=== PATIENT | male | born 1980 | race Two or more races ===

== ENCOUNTER → 2020-08-02 09:03 | Outpatient (BNVA) | payer OTHER, SELFPAY | PROVIDERS: Visit Provider Urology | DX: N41.9 Inflammatory disease of prostate, unspecified (principal) | CPT/HCPCS: 81002 ==

== ENCOUNTER 2020-08-25 07:52 | Emergency (ER) | payer OTHER, SELFPAY ==
[2020-08-25 08:04] VITALS: BP 140/57; PULSE 64; RESP 16; TEMP 36.9; O2SAT 98; BMI 35.1
[2020-08-25] MEDS: Tetracaine HCl/PF 0.5% Oph Sol 4 ML DROPS 3 DROP EYE-RIGHT (08:58)
--- NOTE | 2020-08-25 09:02 | ED.EYEPROB ---
HPI - Eye Problem General Chief complaint: Eye Problems Stated complaint: ?metal in eye Time Seen by Provider: 08/25/20 08:18 Source: patient Mode of arrival: ambulatory History of Present Illness HPI Narrative: 39-year-old male who presents to the emergency department for evaluation of a metal foreign body to the right eye. The patient states that he was grinding metal 2 days prior to did feel something strike his eye underneath the safety glasses. He states that the piece of metal is still in place, he denies any pain or change in his vision but he decided to come to the emergency department since he was concerned that the metal had not fallen out by itself. The patient denies being ill in any way, denied fever, chills, cough, chest pain, shortness of breath, loss of sense of taste or smell. Related Data Previous Rx's Medication Instructions Recorded prednisone 20 mg tablet 20 mg PO DAILY 5 Days #5 tab 08/02/20 sulfamethoxazole 800 1 tab PO BID 14 Days #28 tab 08/02/20 mg-trimethoprim 160 mg tablet tamsulosin 0.4 mg capsule 0.4 mg PO BEDTIME #30 cap 08/02/20 sulfacetamide sodium [Bleph-10] 2 drp OPHTHALMIC-RIGHT Q4H 7 Days 08/25/20 #15 ml Allergies Allergy/AdvReac Type Severity Reaction Status Date / Time No Known Allergies Allergy Unverified 05/17/20 18:27 Review of Systems Review of Systems: Yes all other systems are reviewed and are negative Constitutional: Constitutional: Reports as per HPI Eyes: Eyes: Reports as per HPI ENT: Reports as per HPI Cardiovascular: Cardiovascular: Reports as per HPI Respiratory: Respiratory: Reports as per HPI Gastrointestinal: Gastrointestinal: Reports as per HPI Genitourinary: Genitourinary: Reports as per HPI Musculoskeletal: Musculoskeletal: Reports as per HPI Integumentary/Breasts: Skin/Breast: Reports as per HPI Neurologic: Reports as per HPI and Reports Abnormal speech present Psychiatric: Psychiatric: Reports as per HPI Allergic/Immunologic: Allergic/Immunologic: Reports as per HPI PMF Past Medical History Attestation statement: The following information was validated with the patient. FORMERLY [facility], 1928–1983 Narrative: No past medical history, denies tobacco alcohol and drug use. Medical History No known health problems Social History Social History Advance Directives: No Advance Directives Information Provided: Yes Physical Exam Vital Signs: Vital Signs: Last Vital Signs Temp 98.4 F 08/25/20 08:04 Pulse 64 08/25/20 08:04 Resp 16 08/25/20 08:04 BP 140/57 H 08/25/20 08:04 Pulse Ox 98 08/25/20 08:04 Body Mass Index 35.1 Const: General: cooperative and healthy appearing Nutritional Appearance: average body habitus Orientation/consciousness: oriented to person and oriented to place Limitations: no limitations HENMT: Head: Yes normal to inspection, Yes normocephalic and Yes atraumatic Ears: external ears normal General nose exam: Normal external nose present Face and sinus: Yes normal facial exam Mouth: Normal oral and palatal mucosa present Throat: Yes posterior oropharynx normal Eyes: General: appearance normal, both eyes and all related structures Alignment and Position: alignment normal Periorbital: periorbital findings normal Eyelids: Yes eyelids normal Conjunctivae: conjunctivae normal Sclerae: sclerae normal Pupils: Equal, round and reactive pupils present and Other pupil findings (Foreign body to right eye at the 7 o'clock position) Direct Ophthalmoscopy: normal light reflex Chest: Chest palpation & inspection: normal inspection of the chest Resp: Effort & Inspection: normal respiratory effort Cardio: Heart sounds: Murmur heart sound present GI: Inspection: Yes normal to inspection Neuro: General: oriented to person and oriented to place Cranial nerves: Yes Equal, round and reactive pupils present Cognition (Neuro): normal cognition Speech: Abnormal speech present Psych: Appearance: grossly normal and well kempt Affect: normal affect Attitude: cooperative Thought process: Normal thought process present Course Course Course Narrative: 29-year-old male who presents emergency department for evaluation of metal foreign body to his right cornea secondary to grinding metal 2 days prior. Slit-lamp exam did reveal a rusted metal foreign body at the 7 o'clock position, this was reviewed by me using the 18 gauge needle and the slit lamp. The patient will need follow-up with Optometry or Ophthalmology in 2 days. He was started on Bleph-10 to prevent an infection. He was also given a Tdap since he did not know when his last Tdap was given. Procedures FB Removal Eye Time Out performed: Yes Location: eye (R) Topical anesthetic used: tetracaine Foreign body: metal Evidence of corneal penetration: No Technique: needle Procedure performed under: slit-lamp Patient tolerated procedure: well Discharge Plan Discharge Clinical Impression: Eye foreign body Qualifiers: Encounter type: initial encounter Laterality: right Qualified Code(s): T15.91XA - Foreign body on external eye, part unspecified, right eye, initial encounter Patient Disposition: Home, Self-Care Instructions: Eye Foreign Body (ED) Additional Instructions: You had a metal foreign body in your eye which was removed by me. You received a Tdap ( tetanus, diphtheria, pertussis) vaccine . You need to follow-up with and marine extension agent or supervisor hand silvering in 2 days to make sure that your eye is healing and not getting infected. Use the eyedrops as prescribed, Bleph 10 2 drops to right eye every 4 hours while awake for 7 days. Please return to the emergency department if your symptoms get worse or if you develop any new symptoms that are concerning to you. Prescriptions: New sulfacetamide sodium [Bleph-10] 10 % drops 2 drp ophthalmic-Right Q4H 7 Days Qty: 15 RF: 0 No Action prednisone 20 mg tablet 20 mg PO DAILY 5 Days Qty: 5 RF: 0 tamsulosin 0.4 mg capsule 0.4 mg PO BEDTIME Qty: 30 RF: 0 sulfamethoxazole-trimethoprim [Bactrim DS] 800-160 mg tablet 1 tab PO BID 14 Days Qty: 28 RF: 0 Referrals: Jeffrey Murphy [Physician] - 2 days (Metal foreign body right eye, removed, needs follow-up)
== END 2020-08-25 09:19 | disposition home or self-care (01) ==
PROVIDERS: Emergency Provider Emergency Medicine Emergency Medical Services
DX: T15.91XA Foreign body on external eye, part unspecified, right eye, initial encounter (principal); X58.XXXA Exposure to other specified factors, initial encounter
CPT/HCPCS: 65222; 90471; 90715; 99283; 99284

== ENCOUNTER → 2020-09-13 14:42 | Outpatient (BNVA) | payer OTHER, SELFPAY | PROVIDERS: Visit Provider Urology | DX: N41.9 Inflammatory disease of prostate, unspecified (principal) | CPT/HCPCS: 51798; 81002 ==

== ENCOUNTER → 2021-01-02 13:33 | Outpatient (BNVA) | payer OTHER, SELFPAY | PROVIDERS: Visit Provider Urology ==

== ENCOUNTER → 2021-01-17 09:00 | Outpatient (BNVA) | payer OTHER, SELFPAY | PROVIDERS: Visit Provider Urology | DX: R31.0 Gross hematuria (principal); Z13.9 Encounter for screening, unspecified ==

== ENCOUNTER 2021-02-04 10:33 | Day surgery (SDC) | payer OTHER, SELFPAY ==
[2021-01-30 11:54] VITALS: BMI 35.0
--- NOTE | 2021-02-01 13:04 | HO.ANESPROP2 ---
Documented by User: Tigist Raygoza 02/01/21 13:08 HPI - Anesthesia Eval Consult details Narrative: 40yo M for TUR Bladder Tumor PMFSH Active Problems Active Problems: All Active Problems (Updated 01/17/21 @ 09:31 by Suraj Mccarthy MD) Bladder cancer (Acute) Gross hematuria (Acute) Prostatitis (Acute) Past Medical History Medical History Bladder cancer Social History Social History Patient Tobacco Use Status: Former Tobacco user Quit Date: 2007 Tobacco use type: Cigarette Use of substances other than those prescribed or required for medical reasons: Yes Substance Use Frequency: Daily Are you DNR?: No Advance Directives: No Advance Directives Information Provided: Yes Meds Allergies Allergy/AdvReac Type Severity Reaction Status Date / Time No Known Allergies Allergy Verified 01/17/21 08:12 Exam Exam Date and Time: February 01, 2021 1304 Height,Weight and Vital Signs: Height 5 ft 3 in Weight 89.811 kg Assessment and Plan Assessment Anesthesia Assessment: Chart Reviewed Documented by User: Conchita Clark 02/04/21 14:55 PMFSH Past Medical History Medical History Bladder cancer Social History Social History Patient Tobacco Use Status: Former Tobacco user Quit Date: 2007 Tobacco use type: Cigarette Use of substances other than those prescribed or required for medical reasons: Yes Substance Use Frequency: Daily Are you DNR?: No Advance Directives: No Advance Directives Information Provided: Yes Meds Allergies Allergy/AdvReac Type Severity Reaction Status Date / Time No Known Allergies Allergy Verified 01/17/21 08:12 Exam Airway Mallampati Class: II TM Dist: >3cm Neck ROM: Full Loose/Missing/Broken Teeth: No Heart: RRR Lungs: CTA Assessment and Plan Assessment Anesthesia Assessment: Anesthesia Plan Discussed and Chart Reviewed Final Anesthetic Review NPO: Yes ASA Class: II Final Preanesthetic Review: Meds/Allgs Chart Reviewed, Consent Obtained/Reviewed and Anes Risks/Benef Reviewed Patient Risk: Low Procedure Risk: Low Anesthetic Plan Anesthetic Plan: GA Disposition: Standard PACU
[2021-02-04 13:50] VITALS: BMI 34.3
[2021-02-04 14:06] VITALS: BP 147/64; PULSE 52; RESP 16; TEMP 36.4; O2SAT 98
[2021-02-04] MEDS: levoFLOXacin 500 MG TABLET PO (14:16)
[2021-02-04] MEDS: Lactated Ringers 1,000 ML 100 ML IVCONT (14:16)
--- NOTE | 2021-02-04 15:39 | MHC.SHP ---
Pre-Procedural Eval Section A The patient is an INPATIENT: No Changes since office visit: No Cold of Flu in the past 2 weeks, No New Medical Problems, No Changes in Medication and No Patient answered all questions The History & Physical has been completed within 30 days and I have reviewed it.: Yes Section B Chief Complaint: malignant neoplasm of bladder Allergies: Allergies Allergy/AdvReac Type Severity Reaction Status Date / Time No Known Allergies Allergy Verified 01/17/21 08:12 Plan Diagnosis/Plan: Unchanged (TURBT - bladder tumor low grade) I have reviewed the history and physical and performed a pertinent physical examination on my patient. No changes have occurred unless specified.
--- NOTE | 2021-02-04 16:18 | W.PM.OPN ---
Operative Note Operative Note Date of Service: 02/04/21 Narrative: PreOperative Diagnosis: bladder cancer Post Operative Diagnosis: bladder cancer Procedure: transurethral resection of bladder tumor Surgeon: Dr Suraj Mccarthy Anesthesia: general Indications for procedure: this is a 40-year-old male. He had presented initially for prostatitis. Noted hematuria. On cystoscopy was found to have a low-grade bladder cancer on the left lower side wall of his bladder. Recommendation for TURBT. Risks and Benefits have been discussed. Procedure: After informed consent was verified the patient was brought to the operating room and placed in a supine position. anesthesia was administered per protocol. the patient was placed in a modified dorsal lithotomy position and prepped and draped in sterile fashion. Safety pause time-out was performed. Antibiotics have been given. The resectoscope using the visual obturator was advanced into the bladder. no abnormality noted of the urethra. Both ureteric orifices in normal position. The tumor was seen approximately 4-5 cm in size from the left sidewall. Using the resectoscope the tumor was removed. There was a now the lesion noted on the 12 o'clock position of the bladder neck. This too was also removed. The area 1 cm around the lesion was fulgurated. No catheter was required The bladder was emptied The patient tolerated the procedure well was extubated in the operating room and transferred in a stable condition to the recovery area Pathology: Bladder tumor Drains: none
[2021-02-04 16:30] VITALS: BP 110/65; PULSE 65; RESP 12; TEMP 36.3; O2SAT 99
[2021-02-04 16:35] VITALS: BP 126/77; PULSE 68; RESP 16; O2SAT 100
[2021-02-04 16:45] VITALS: BP 150/89; PULSE 64; RESP 17; TEMP 36.2; O2SAT 98
[2021-02-04 17:00] VITALS: BP 129/62; PULSE 68; RESP 16; O2SAT 98
[2021-02-04] MEDS: Phenazopyridine HCL 100 MG TABLET PO (17:00)
[2021-02-04 17:15] VITALS: BP 124/64; PULSE 66; RESP 17; O2SAT 99
== END 2021-02-04 17:24 ==
LOC: HO.SSS 10:33
PROVIDERS: Visit Provider Urology
PROC: 0TBB8ZZ Excision of Bladder, Via Natural or Artificial Opening Endoscopic (ICD-10-PCS; CPT 52235; principal; 2021-02-04 11:50)
DX: C67.9 Malignant neoplasm of bladder, unspecified (principal); Z79.899 Other long term (current) drug therapy; Z87.891 Personal history of nicotine dependence
CPT/HCPCS: 52235; 88307; J2250; J2405; J3010

== ENCOUNTER → 2021-02-13 10:52 | Outpatient (BNVA) | payer SELFPAY | PROVIDERS: Visit Provider Physician Assistant | DX: Z02.79 Encounter for issue of other medical certificate (principal); C67.9 Malignant neoplasm of bladder, unspecified; Z87.891 Personal history of nicotine dependence ==

== ENCOUNTER 2021-05-15 14:50 | Outpatient (REF) | payer OTHER, SELFPAY ==
[2021-05-15 17:11] LABS: Urine Cytology See Pathology rpt
== END 2021-05-15 14:51 | disposition home or self-care (01) ==
LOC: HO.LAB 14:50
PROVIDERS: Visit Provider Urology
DX: Z85.51 Personal history of malignant neoplasm of bladder (principal)
CPT/HCPCS: 52000; 88112

== ENCOUNTER 2021-09-13 09:45 | Outpatient (REF) | payer SELFPAY ==
[2021-09-13 16:39] LABS: Urine Cytology See Pathology rpt
== END 2021-09-13 09:46 | disposition home or self-care (01) ==
LOC: HO.LNP 09:45
PROVIDERS: Visit Provider Urology
DX: C67.9 Malignant neoplasm of bladder, unspecified (principal); N41.9 Inflammatory disease of prostate, unspecified; Z79.899 Other long term (current) drug therapy; Z87.891 Personal history of nicotine dependence
CPT/HCPCS: 52000; 88112

== ENCOUNTER 2022-01-10 09:06 | Outpatient (REF) | payer SELFPAY ==
[2022-01-10 16:57] LABS: Urine Cytology See Pathology rpt
== END 2022-01-10 09:07 | disposition home or self-care (01) ==
LOC: HO.LAB 09:06
PROVIDERS: Visit Provider Urology
DX: C67.9 Malignant neoplasm of bladder, unspecified (principal)
CPT/HCPCS: 52000; 88112; 99212

== ENCOUNTER 2022-02-25 18:58 | Emergency (ER) | payer SELFPAY ==
--- NOTE | 2022-02-25 | ECG_ITS ---
Test Reason : CP Blood Pressure : / mmHG Vent. Rate : 049 BPM Atrial Rate : 049 BPM P-R Int : 174 ms QRS Dur : 084 ms QT Int : 424 ms P-R-T Axes : 051 005 -01 degrees QTc Int : 383 ms Sinus bradycardia Minimal voltage criteria for LVH, may be normal variant ( R in aVL ) cannot exclude old Inferior infarct , age undetermined Abnormal ECG No previous ECGs available Referred By: Dmitri Álvarez Electronically Signed By:VIDHI NOVA
[2022-02-25 20:35] VITALS: BP 124/81; PULSE 51; RESP 15; TEMP 36.2; O2SAT 98; BMI 30.7
[2022-02-25 21:07] LABS: MANUAL DIFF FLAG NO
[2022-02-25 21:10] LABS: Basophils Absolute Auto 0.1 X10*3/uL (0.0-0.2); Basophils Percent Auto 0.8 % (0-2); Eosinophils Absolute Auto 0.5 X10*3/uL (0.0-0.4); Eosinophils Percent Auto 4.6 % (0-4); Hematocrit 40.9 % (42.0-52.0); Hemoglobin 13.8 g/dl (14.0-18.0); Imm Gran Abs Auto 0.05 X10*3/uL (0.00-0.03); Imm Gran Pct Auto 0.5 % (0.0-0.4); Lymphocytes Absolute Auto 2.7 X10*3/uL (1.2-4.9); Mean Corpuscular HGB Conc 33.7 g/dl (31.0-36.0); Mean Corpuscular Hemoglobin 29.3 pg (27.0-33.0); Mean Corpuscular Volume 86.8 fL (80.0-98.0); Monocytes Absolute Auto 0.7 X10*3/uL (0.1-1.2); Monocytes Percent Auto 6.9 % (2-11); Neutrophils Absolute Auto 6.1 x10*3/uL (2.0-8.3); Neutrophils Percent Auto 60.2 % (45-73); Platelet Count 268 X10*3/uL (160-400); Red Blood Count 4.71 X10*6/uL (4.60-5.80); Red Cell Distribution Width 12.4 % (11.0-16.0); White Blood Count 10.2 X10*3/uL (4.8-10.8)
[2022-02-25 21:17] VITALS: BP 136/79; PULSE 49; RESP 18; TEMP 36.9; O2SAT 98
--- NOTE | 2022-02-25 21:25 | ED.CHESTPAIN ---
HPI - Chest Pain General Chief Complaint: Chest Pain Stated Complaint: pressure in head/ tight chest Time Seen by Provider: 02/25/22 21:25 Source: patient Mode of arrival: ambulatory Limitations: no limitations History of Present Illness HPI narrative: patient had chest pain yesterday and headache yesterday. patient today again with chest pain. Patient had chest pain at rest pain was substernal with some shortness of breath. Patient with prior chest pain with no prior workup. Patient with recent surgery for bladder cancer, patient had 6 weeks of chemo directly into the bladder. Chemo finished 6 months ago. complaint: chest heaviness Onset (ago): day(s) Timing of current episode: episodic Prior episodes: Yes Onset: during rest Pain location: substernal Severity: mild Quality: tightness Relieving factors: nothing Associated symptoms: dyspnea Risk Factors Coronary artery disease risk factors: none Pulmonary embolism risk factors: recent surgery and malignancy Related Data Home Medications Medication Instructions Recorded Confirmed phenazopyridine 100 mg tablet 100 mg PO TID PRN muscle spasm 05/15/21 hydroxyzine HCl 25 mg tablet 25 mg PO DAILY 09/13/21 Allergies Allergy/AdvReac Type Severity Reaction Status Date / Time No Known Allergies Allergy Verified 01/10/22 09:08 Review of Systems Constitutional: Constitutional: Reports no additional constitutional complaints Eyes: Eyes: Reports no additional eye complaints ENT: Denies dizziness Cardiovascular: Cardiovascular: Reports no additional cardiovascular complaints Respiratory: Respiratory: Reports as per HPI Gastrointestinal: Gastrointestinal: Reports no additional gastrointestinal complaints Musculoskeletal: Musculoskeletal: Reports no additional musculoskeletal complaints Integumentary/Breasts: Skin/Breast: Denies rash Neurologic: Reports system reviewed and no additional complaints, except as documented, Denies dizziness and Denies Sensory deficit (Neuro) Psychiatric: Psychiatric: Denies anxiety [facility] Past Medical History Medical History (Updated 02/27/22 @ 00:03 by Seema Parsons) Bladder cancer Social History Social History Alcohol intake: current Alcohol intake frequency: a few times a week Patient Tobacco Use Status: Former Tobacco user Quit Date: 2007 Tobacco use type: Cigarette Use of substances other than those prescribed or required for medical reasons: Yes Substance Use Type: Marijuana Substance Use Frequency: Daily Any prior treatment program specific to substance use: No Advance Directives: No Advance Directives Information Provided: No Physical Exam Vital Signs: Vital Signs: Last Vital Signs Temp 98.2 F 02/26/22 00:29 Pulse 59 02/26/22 00:29 Resp 16 02/26/22 00:29 BP 112/68 02/26/22 00:29 Pulse Ox 99 02/26/22 00:29 O2 Del Method 02/26/22 00:29 BMI result Body Mass Index 30.7 Const: General: healthy appearing Nutritional Appearance: average body habitus Orientation/consciousness: oriented to person and patient oriented x3 Limitations: no limitations HEENT: Head: Yes normal to inspection Ears: external ears normal General nose exam: Normal external nose present Mouth: Normal oral and palatal mucosa present and oropharynx normal Throat: Yes posterior oropharynx normal Eyes: General: appearance normal, both eyes and all related structures Neck: Other: supple Neck: Yes normal visual inspection Chest: Chest palpation & inspection: normal inspection of the chest Resp: Auscultation: clear to auscultation bilaterally Cardio: Jugular venous distension: no JVD Rate: regular rate Rhythm: regular rhythm Heart sounds: S1 normal heart sound present and S2 normal heart sound present GI: Inspection: Yes normal to inspection Palpation (GI): Soft to palpation, nontender and No hepatosplenomegaly present Auscultation: normal bowel sounds : General: Yes no CVA tenderness Back/Spine/Pelvis: Back: no CVA tenderness Skin: General skin exam: no rashes or lesions noted Neuro: General: oriented to person and patient oriented x3 Cranial nerves: Yes CN's II-XII intact bilaterally Motor exam (neuro): 5/5 motor strength present throughout Sensory Exam: No Sensory deficit (Neuro) Extrem: General: Yes normal to inspection Psych: Appearance: grossly normal Course Reevaluation(s) Reevaluation #1: Work up was negative, patient reassured that this was not cardiac in nature Time: 08:40 MDM - Chest Pain Lab Data Result diagrams: 02/25/22 21:01 02/25/22 22:03 Labs: Lab Results 02/25/22 02/25/22 02/25/22 Range/Units 21:01 21:02 21:02 WBC 10.2 (4.8-10.8) X10*3/uL RBC 4.71 (4.60-5.80) X10*6/uL Hgb 13.8 L (14.0-18.0) g/dl Hct 40.9 L (42.0-52.0) % MCV 86.8 (80.0-98.0) fL MCH 29.3 (27.0-33.0) pg MCHC 33.7 (31.0-36.0) g/dl RDW 12.4 (11.0-16.0) % Plt Count 268 (160-400) X10*3/uL MPV 11.0 (9.4-12.4) fL Immature Gran % (Auto) 0.5 H (0.0-0.4) % Neut % (Auto) 60.2 (45-73) % Lymph % (Auto) 27.0 (20-40) % Weld % (Auto) 6.9 (2-11) % Eos % (Auto) 4.6 H (0-4) % Baso % (Auto) 0.8 (0-2) % Lymph # (Auto) 2.7 (1.2-4.9) X10*3/uL Weld # (Auto) 0.7 (0.1-1.2) X10*3/uL Eos # (Auto) 0.5 H (0.0-0.4) X10*3/uL Baso # (Auto) 0.1 (0.0-0.2) X10*3/uL Abs Immat Gran (auto) 0.05 H (0.00-0.03) X10*3/uL Absolute Neuts (auto) 6.1 (2.0-8.3) x10*3/uL Absolute Nucleated RBC 0.000 (0.0-0.012) X10*3/uL Nucleated RBC % (auto) 0.0 (0.0-0.2) /100WBC D-Dimer High Sensitivty NG/ML Sodium 139 (135-145) mmol/L Potassium 4.4 (3.3-5.1) mmol/L Chloride 107 (96-108) mmol/L Carbon Dioxide 27 (22-29) mmol/L Anion Gap 9 L (12-20) BUN 14 (9-16) mg/dL Creatinine 0.94 (0.5-1.4) mg/dL Estim Creat Clear Calc 107.4 Estimated GFR > 60 Random Glucose 97 (60-115) mg/dL Calcium 9.3 (8.4-10.2) mg/dL Total Bilirubin 0.5 (0.0-1.0) mg/dL AST 27 (5-37) U/L ALT 26 (0-40) U/L Alkaline Phosphatase 84 (39-117) U/L Troponin I High Sens 4.5 (<3.5-35.0) ng/L Total Protein 7.5 (6.5-8.0) g/dL Albumin 4.7 (3.5-5.0) g/dL 02/25/22 02/25/22 02/26/22 Range/Units 22:03 22:03 00:38 WBC (4.8-10.8) X10*3/uL RBC (4.60-5.80) X10*6/uL Hgb (14.0-18.0) g/dl Hct (42.0-52.0) % MCV (80.0-98.0) fL MCH (27.0-33.0) pg MCHC (31.0-36.0) g/dl RDW (11.0-16.0) % Plt Count (160-400) X10*3/uL MPV (9.4-12.4) fL Immature Gran % (Auto) (0.0-0.4) % Neut % (Auto) (45-73) % Lymph % (Auto) (20-40) % Weld % (Auto) (2-11) % Eos % (Auto) (0-4) % Baso % (Auto) (0-2) % Lymph # (Auto) (1.2-4.9) X10*3/uL Weld # (Auto) (0.1-1.2) X10*3/uL Eos # (Auto) (0.0-0.4) X10*3/uL Baso # (Auto) (0.0-0.2) X10*3/uL Abs Immat Gran (auto) (0.00-0.03) X10*3/uL Absolute Neuts (auto) (2.0-8.3) x10*3/uL Absolute Nucleated RBC (0.0-0.012) X10*3/uL Nucleated RBC % (auto) (0.0-0.2) /100WBC D-Dimer High Sensitivty < 150 NG/ML Sodium 139 (135-145) mmol/L Potassium 4.4 (3.3-5.1) mmol/L Chloride 107 (96-108) mmol/L Carbon Dioxide 24 (22-29) mmol/L Anion Gap 12 (12-20) BUN 14 (9-16) mg/dL Creatinine 0.83 (0.5-1.4) mg/dL Estim Creat Clear Calc 121.7 Estimated GFR > 60 Random Glucose 93 (60-115) mg/dL Calcium 9.2 (8.4-10.2) mg/dL Total Bilirubin (0.0-1.0) mg/dL AST (5-37) U/L ALT (0-40) U/L Alkaline Phosphatase (39-117) U/L Troponin I High Sens 4.8 (<3.5-35.0) ng/L Total Protein (6.5-8.0) g/dL Albumin (3.5-5.0) g/dL Discharge Plan Discharge Clinical Impression: Chest pain Patient Disposition: Home, Self-Care Prescriptions: No Action phenazopyridine 100 mg tablet 100 mg PO TID PRN (Reason: muscle spasm) hydroxyzine HCl 25 mg tablet 25 mg PO DAILY nitrofurantoin monohyd/m-cryst 100 mg capsule 100 mg PO ONCE Qty: 1 0RF lidocaine HCl 2 % jelly in applicator 10 ml intra-urethral ONCE Qty: 10 0RF Discharge Date/Time: 02/26/22 02:26
[2022-02-25 21:35] LABS: Alanine Aminotransferase 26 U/L (0-40); Albumin Level 4.7 g/dL (3.5-5.0); Alkaline Phosphatase 84 U/L (39-117); Anion Gap 9 (12-20); Aspartate Amino Transferase 27 U/L (5-37); Bilirubin Total 0.5 mg/dL (0.0-1.0); Blood Urea Nitrogen 14 mg/dL (9-16); Calcium 9.3 mg/dL (8.4-10.2); Carbon Dioxide 27 mmol/L (22-29); Chloride 107 mmol/L (96-108); Creatinine Clr Calc Pharmacy 107.4; Estimated Glomerular Filt Rate > 60; Glucose Random 97 mg/dL (60-115); Potassium 4.4 mmol/L (3.3-5.1); Sodium 139 mmol/L (135-145); Total Protein 7.5 g/dL (6.5-8.0)
[2022-02-25 21:37] LABS: Troponin-I High Sensitivity 4.5 ng/L (<3.5-35.0)
[2022-02-25] MEDS: Aspirin Enteric Coated 325 MG TABLET.DR PO (21:44)
[2022-02-25] MEDS: Nitroglycerin 2 % Oint 1 GM Packet 1 INCH TRANSDERMA (21:44)
[2022-02-25 22:27] VITALS: BP 141/80; PULSE 58; RESP 16; O2SAT 96
[2022-02-25 22:43] LABS: D Dimer High Sensitivity < 150 NG/ML
[2022-02-25 22:47] LABS: Anion Gap 12 (12-20); Blood Urea Nitrogen 14 mg/dL (9-16); Calcium 9.2 mg/dL (8.4-10.2); Carbon Dioxide 24 mmol/L (22-29); Chloride 107 mmol/L (96-108); Creatinine Clr Calc Pharmacy 121.7; Estimated Glomerular Filt Rate > 60; Glucose Random 93 mg/dL (60-115); Potassium 4.4 mmol/L (3.3-5.1); Sodium 139 mmol/L (135-145)
[2022-02-26 00:29] VITALS: BP 112/68; PULSE 59; RESP 16; TEMP 36.8; O2SAT 99
[2022-02-26 01:04] LABS: Troponin-I High Sensitivity 4.8 ng/L (<3.5-35.0)
== END 2022-02-26 02:26 | disposition home or self-care (01) ==
PROVIDERS: Emergency Provider Emergency Medicine; PCP Physician Assistant
DX: R07.89 Other chest pain (principal); R51.9 Headache, unspecified; R06.02 Shortness of breath; Z79.899 Other long term (current) drug therapy; Z87.891 Personal history of nicotine dependence
CPT/HCPCS: 36415; 80048; 80053; 84484; 85025; 85379; 93005; 99283; 99284

== ENCOUNTER 2022-07-11 09:03 | Outpatient (REF) | payer OTHER, SELFPAY ==
[2022-07-11 17:11] LABS: Urine Cytology See Pathology rpt
== END 2022-07-11 09:04 | disposition home or self-care (01) ==
LOC: HO.LAB 09:03
PROVIDERS: Visit Provider Urology
DX: C67.9 Malignant neoplasm of bladder, unspecified (principal)
CPT/HCPCS: 52000; 88112

== ENCOUNTER 2022-07-28 11:09 | Day surgery (SDC) | payer OTHER, SELFPAY ==
[2022-07-28] VITALS (9 sets, daily range): BP systolic 106–155; BP diastolic 56–90; PULSE 55–88; RESP 16–18; TEMP 36.1–36.6; O2SAT 95–98
[2022-07-28] MEDS: Acetaminophen 325 MG TABLET 650 MG PO (14:19)
--- NOTE | 2022-07-28 14:42 | MHC.SHP ---
Pre-Procedural Eval Section A Date of Service: 07/28/22 The patient is an INPATIENT: No Changes since office visit: No Cold of Flu in the past 2 weeks, No New Medical Problems, No Changes in Medication and No Patient answered all questions The History & Physical has been completed within 30 days and I have reviewed it.: Yes Section B Chief Complaint: Malignant neoplasm of bladder, unspecified Allergies: Allergies Allergy/AdvReac Type Severity Reaction Status Date / Time No Known Allergies Allergy Verified 07/28/22 13:21 Plan Diagnosis/Plan: Unchanged (Cysto, bladder biopsy, mitomycin-C) I have reviewed the history and physical and performed a pertinent physical examination on my patient. No changes have occurred unless specified.
--- NOTE | 2022-07-28 14:52 | HO.ANESPROP2 ---
[facility] Active Problems Active Problems: All Active Problems (Updated 02/27/22 @ 00:03 by Seema Parsons) Prostatitis (Acute) Gross hematuria (Acute) Bladder cancer (Acute) Past Medical History Medical History Bladder cancer Family History Family history of problems with anesthesia: No Surgical History Surgical History (Updated 07/28/22 @ 13:29 by Lennie Bolton RN) Hx of cystoscopy History of Problems with Anesthesia: No Social History Social History Alcohol intake: current Alcohol intake frequency: a few times a week Patient Tobacco Use Status: Former Tobacco user Quit Date: 2007 Tobacco use type: Cigarette Substance Use Type: Marijuana Substance Use Frequency: Daily Are you DNR?: No Advance Directives: No Advance Directives Information Provided: Yes Nutrition Risks: No Nutritional Risk Meds Allergies Allergy/AdvReac Type Severity Reaction Status Date / Time No Known Allergies Allergy Verified 07/28/22 13:21 Active Medications: Current Medications Fentanyl (Fentanyl Citrate/Pf 100 Mcg/2 Ml Vial) 25 mcg IVPUSH Q5M PRN; Protocol PRN Reason: Pain, Moderate (Pain Scale 4-6 Mitomycin 40 mg/ Sodium (Chloride) 20 mls @ 10 mls/hr INTRAVESIC ONCE BRITTANY Stop: 07/28/22 23:59 Lactated Ringer's (Lr) 500 mls @ 20 mls/hr IVCONT .Q24H BRITTANY Ondansetron HCl (Ondansetron Hcl 4 Mg/2 Ml Vial) 4 mg IVPUSH ONCE PRN PRN Reason: Nausea and Vomiting Oxycodone HCl (Oxycodone Hcl Immed Release 5 Mg Tablet) 5 mg PO ONCE PRN PRN Reason: Pain, Severe (Pain Scale 7-10) Home Medications Medication Instructions Recorded Confirmed Last Taken Type No Known Home Meds 07/28/22 07/28/22 Unknown History Exam Exam Date and Time: July 28, 2022 1452 Height,Weight and Vital Signs: Height 5 ft 6 in Weight 86.183 kg Last Vital Signs Temp 97.9 F 07/28/22 13:43 Pulse 67 07/28/22 13:43 Resp 18 07/28/22 13:43 BP 106/80 07/28/22 13:43 Pulse Ox 97 07/28/22 13:43 O2 Del Method 07/28/22 13:43 Airway Mallampati Class: III TM Dist: >3cm Neck ROM: Full Denture: Upper and Lower Heart: rrr Lungs: clear Assessment and Plan Final Anesthetic Review Family History of Problems with Anesthesia: No History of Problems with Anesthesia: No NPO: Yes ASA Class: III Final Preanesthetic Review: No Changes in Pt Med Stat, Meds/Allgs Chart Reviewed, Consent Obtained/Reviewed and Anes Risks/Benef Reviewed Patient Risk: Intermediate Procedure Risk: Low Anesthetic Plan Anesthetic Plan: GA Disposition: Standard PACU
--- NOTE | 2022-07-28 15:31 | W.PM.OPN ---
Operative Note Operative Note Date of Service: 07/28/22 Narrative: PreOperative Diagnosis: bladder cancer Post Operative Diagnosis: bladder cancer Procedure: cystoscopy, bladder biopsy, fulguration, mitomycin-C installation Surgeon: Dr Suraj Mccarthy Anesthesia: LMA Indications for procedure: Superficial bladder cancer - recurrence. Here for cystoscopy, bladder biopsy. Evaluation. Procedure: After informed consent was verified the patient was brought to the operating room and placed in a supine position. Anesthesia was administered per protocol. The patient was placed in modified dorsal lithotomy position and prepped and draped in a sterile fashion. Safety pause time-out was performed. Antibiotics being given. Cystoscopy was performed. 1 cm bladder tumor on small stalks seen on anterior bladder wall. This was removed with biopsy forceps. Area was fulgurated. Narrow band imaging was used but no other areas of suspicion was seen. Cystoscope was removed. Three-way Lozano catheter placed. Mitomycin-C instilled. This will set for approximately 1 hour before being drained from bladder and bladder irrigation performed. Lozano catheter be removed this time. The patient tolerated the procedure well. They were extubated in operating room and transferred in stable conditions recovery area. Pathology: Bladder biopsies Drains: Lozano
== END 2022-07-28 17:12 | disposition home or self-care (01) ==
PROVIDERS: PCP Physician Assistant; Visit Provider Urology
PROC: 0T5B8ZZ Destruction of Bladder, Via Natural or Artificial Opening Endoscopic (ICD-10-PCS; CPT 52234; principal; 2022-07-28 13:00)
DX: C67.3 Malignant neoplasm of anterior wall of bladder (principal); Z87.891 Personal history of nicotine dependence
CPT/HCPCS: 52234; 88307; J1100; J1956; J2250; J2405; J3010; J9280

== ENCOUNTER 2022-11-14 13:56 | Outpatient (REF) | payer OTHER, SELFPAY ==
[2022-11-14 17:40] LABS: Urine Cytology See Pathology rpt
== END 2022-11-14 13:57 | disposition home or self-care (01) ==
LOC: HO.LAB 13:56
PROVIDERS: PCP Physician Assistant; Visit Provider Urology
DX: C67.9 Malignant neoplasm of bladder, unspecified (principal)
CPT/HCPCS: 52000; 88112

== ENCOUNTER → 2023-02-13 13:55 | Outpatient (BNVA) | payer OTHER, SELFPAY | PROVIDERS: PCP Physician Assistant; Visit Provider Urology | DX: R31.9 Hematuria, unspecified (principal); N41.9 Inflammatory disease of prostate, unspecified; C67.9 Malignant neoplasm of bladder, unspecified | CPT/HCPCS: 52000 ==

== ENCOUNTER 2023-05-15 13:46 | Outpatient (AMB) | payer OTHER, SELFPAY ==
--- NOTE | 2023-05-15 14:09 | MHC.OFFVIS ---
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 Information consent for procedure given to the patient. Discussed technical aspects, risks, benefits and alternatives in full. Addressed all of the patient's questions and concerns regarding the procedure. The patient demonstrated knowledge and understanding. They wish to proceed with this procedure. Preparation The patient was prepped in the usual manner. A necktie centralizing machine operator was present and in the room. Genitalia was prepped with betadine solution in a sterile manner. Lidocaine Jelly 2% was placed into the urethra and 16Fr flexible Olympus cystoscope was inserted into the meatus after adequate lubrication. Procedure Meatus uncircumcised Urethra anterior posterior urethra normal Prostatic Urethra unremarkable Bladder examination with retroflexion of cystoscope Bladder Orifices normal shape and position Bladder Capacity medium Trabeculations grade 1 Cellule Formation known Diverticulum Formation - Mucosal Erythema healing area posterior wall Bladder Tumor - DISPOSABLE SCOPE URO-G FLEXIBLE SCOPE Procedure code (CPT) selection complete Office Meds lidocaine HCl 2 % mucosal jelly in applicator Performing Provider: Suraj Mccarthy MD Performing Location[facility] [place] [facility] Documented (not given) by: Suraj Mccarthy MD on 05/15/23 14:31 Dose Route Admin Location Dispensed Lot Number Expiration Date [facility] Draw Off Worker 10 mL intra-urethral mL Results AMB Urinalysis, Automated UA Leukoctes 0 Little/uL Last Edit by Layla Simpson on 05/15/23 14:13 UA Nitrite Last Edit by Layla Simpson on 05/15/23 14:13 UA Urobilinogen 0.2 mg/dL Last Edit by Giovannikuldip Lashawnjose e on 05/15/23 14:13 UA Protein 0 mg/dL Last Edit by Layla Lashawnjose e on 05/15/23 14:13 UA pH 6.0 Last Edit by Layla Lashawnjose e on 05/15/23 14:13 UA Blood 0 Pranav/uL Last Edit by Layla Simpson on 05/15/23 14:13 UA Specific [place] 1.025 Last Edit by Layla Lashawnjose e on 05/15/23 14:13 UA Ketone Negative Last Edit by Layla Simpson on 05/15/23 14:13 UA Bilirubin 0 mg/dL Last Edit by Layla Lashawnjose e on 05/15/23 14:13 UA Glucose 0 mg/dL Last Edit by Layla Simpson on 05/15/23 14:13 Results Reviewed Results Reviewed: Laboratory Last Values Urine pH (Auto) 6.0 05/15/23 14:11 Specific [place] (Auto) 1.025 05/15/23 14:11 Urine Protein (Auto) 0 mg/dL 05/15/23 14:11 Glucose (UA)(Auto) 0 mg/dL 05/15/23 14:11 Urine Ketones (Auto) Negative 05/15/23 14:11 Urine Blood (Auto) 0 Pranav/uL 05/15/23 14:11 Urine Bilirubin (Auto) 0 mg/dL 05/15/23 14:11 Urine Urobilinogen (Auto) 0.2 mg/dL 05/15/23 14:11 Leukocyte Esterase (Auto) 0 Little/uL 05/15/23 14:11 Assessment & Plan Assessment & Plan Orders: Orders AMB Urinalysis Automated Today Z13.9 - Encounter for screening, unspecified AMB Cystoscopy Today C67.9 - Malignant neoplasm of bladder, unspecified Medications: New lidocaine HCl 2% 10 mL intra-urethral ONCE 10 mL 0RF C67.9 - Malignant neoplasm of bladder, unspecified Coding
--- NOTE | 2023-05-15 14:30 | A.OFFVIS_ITS ---
Intake Intake Visit Reasons: Cysto Allergies No Known Allergies Allergy (Verified 05/15/23 14:10) HPI HPI Comments History of Present Illness Details Raymond is a pleasant male. He is a patient of Dr. Abreu. He is seen for the following urologic conditions - bladder cancer Here for 3 month cystoscopy Posterior wall healed Three month follow-up check cystoscopy Bladder cancer. Initial TURBT January 2021. Pathology low-grade noninvasive. Treated with adjuvant gemcitabine due to young age Diagnosed January 2021 Intervention - 02/18 TURBT left sidewall lesion with g emcitabine - 07/22 TURBT side wall mitomycin-C Pathology 02/18 low-grade noninvasive large, 07/22 low-grade superficial Intermediate Risk Adjuvant therapy - 03/20 6 weeks induction gemcitabine, 08/21 6 weeks induction Check cystoscopy 05/21 NAD, 09/20 NAD, 11/20 NAD Check cytology - 05/21 NAD, 12/20 NAD, 07/22 small lesion dome, 05/23 NAD 3m check cysto PFSH Medical History Bladder cancer Surgical History Hx of cystoscopy Social History Alcohol intake: current Alcohol intake frequency: a few times a week Patient Tobacco Use Status: Former Tobacco user Quit Date: 2007 Tobacco use type: Cigarette Substance Use Type: Marijuana Review of Systems Const Denies chills and Denies fever(s) Card Reports no additional complaints and Denies syncope Resp Denies cough GI Denies abdominal pain and Denies heartburn Reports as per HPI and Denies change in libido Neuro Denies syncope Psych Denies change in libido Endo Denies change in libido Physical Exam Const General: cooperative, healthy appearing, comfortable and no acute distress Orientation/consciousness: patient oriented x3 HEENT Face and sinus: Yes normal facial exam Mouth: moist mucous membranes Neck Neck: Yes normal visual inspection, Yes full ROM and Yes trachea midline Chest Chest palpation & inspection: normal inspection of the chest Resp Effort & Inspection: normal respiratory effort, able to speak in complete sentences and no respiratory distress GI Inspection: Yes normal to inspection Back/Spine/Pelvis Cervical Spine: normal cervical lordosis Thoracic/Lumbar Spine: thoracic and lumbar spine normal to inspection Skin General skin exam: no rashes or lesions noted Neuro General: patient oriented x3, gait normal, tone normal and moves all extremities Extrem General: Yes normal to inspection and Yes capillary refill normal Office Procedures Cystoscopy Consent Discussed risk and benefit or proposed procedure with the patient. Information consent for procedure given to the patient. Discussed technical aspects, risks, benefits and alternatives in full. Addressed all of the patient's questions and concerns regarding the procedure. The patient demonstrated knowledge and understanding. They wish to proceed with this procedure. Preparation The patient was prepped in the usual manner. A manager oracle was present and in the room. Genitalia was prepped with betadine solution in a sterile manner. Lidocaine Jelly 2% was placed into the urethra and 16Fr flexible Olympus cystoscope was inserted into the meatus after adequate lubrication. Procedure Meatus uncircumcised Urethra anterior posterior urethra normal Prostatic Urethra unremarkable Bladder examination with retroflexion of cystoscope Bladder Orifices normal shape and position Bladder Capacity medium Trabeculations grade 1 Cellule Formation known Diverticulum Formation - Mucosal Erythema healing area posterior wall Bladder Tumor - DISPOSABLE SCOPE URO-G FLEXIBLE SCOPE Procedure code (CPT) selection complete Office Meds lidocaine HCl 2 % mucosal jelly in applicator Performing Provider: Suraj Mccarthy MD Performing Location[place] [facility] [place] [facility] Documented (not given) by: Suraj Mccarthy MD on 05/15/23 14:31 Dose Route Admin Location Dispensed Lot Number Expiration Date [facility] [place] Journeyman Power Plant Operator 10 mL intra-urethral mL Results AMB Urinalysis, Automated UA Leukoctes 0 Little/uL Last Edit by Layla Simpson on 05/15/23 14:13 UA Nitrite Last Edit by Layla Simpson on 05/15/23 14:13 UA Urobilinogen 0.2 mg/dL Last Edit by Layla Simpson on 05/15/23 14:13 UA Protein 0 mg/dL Last Edit by Layla Simpson on 05/15/23 14:13 UA pH 6.0 Last Edit by Layla Simpson on 05/15/23 14:13 UA Blood 0 Pranav/uL Last Edit by Layla Simpson on 05/15/23 14:13 UA Specific [place] 1.025 Last Edit by Layla Simpson on 05/15/23 14:13 UA Ketone Negative Last Edit by Layla Simpson on 05/15/23 14:13 UA Bilirubin 0 mg/dL Last Edit by Layla Simpson on 05/15/23 14:13 UA Glucose 0 mg/dL Last Edit by Layla Simpson on 05/15/23 14:13 Results Reviewed Results Reviewed: Laboratory Last Values Urine pH (Auto) 6.0 05/15/23 14:11 Specific [place] (Auto) 1.025 05/15/23 14:11 Urine Protein (Auto) 0 mg/dL 05/15/23 14:11 Glucose (UA)(Auto) 0 mg/dL 05/15/23 14:11 Urine Ketones (Auto) Negative 05/15/23 14:11 Urine Blood (Auto) 0 Pranav/uL 05/15/23 14:11 Urine Bilirubin (Auto) 0 mg/dL 05/15/23 14:11 Urine Urobilinogen (Auto) 0.2 mg/dL 05/15/23 14:11 Leukocyte Esterase (Auto) 0 Little/uL 05/15/23 14:11 Assessment & Plan Assessment & Plan (1) Bladder cancer: Comment: January 2021 low-grade T1 medium with adjuvant gemcitabine Superficial recurrence 08/21 Code(s): C67.9 - Malignant neoplasm of bladder, unspecified Plan Continue surveillance Orders: Orders AMB Urinalysis Automated Today Z13.9 - Encounter for screening, unspecified AMB Cystoscopy Today C67.9 - Malignant neoplasm of bladder, unspecified Medications: New lidocaine HCl 2% 10 mL intra-urethral ONCE 10 mL 0RF C67.9 - Malignant neoplasm of bladder, unspecified Patient Instructions: Imaging studies, laboratory and physical exam results were discussed and reviewed in detail. No major barriers to patient understanding were identified. An opportunity to ask questions regarding the treatment plan was provided. All questions were answered. The patient expressed understanding and agreement with the above treatment plan. The patient is aware they should contact our office by phone for worsening of their current condition or the appearance of new urologic symptoms. Compliance is encouraged with any medications and followup testing that is ordered. It is a privilege to participate in the urologic care of your patient. If you have any questions or concerns regarding treatment for the above conditions, or other urologic issues, please do not hesitate to contact me. The office telephone contact is [phone]. This note is constructed using voice recognition software. While every effort has been made to ensure accuracy equity trader errors may have been included. Yours sincerely, Dr Suraj Mccarthy MD, LISA [facility] - Urology Providers of Expert, Compassionate Care for the Genitourinary System Coding Level of Care Code Est Pt Level 3 (56811) Diagnoses Bladder cancer C67.9
== END 2023-05-15 14:41 | disposition home or self-care (01) ==
PROVIDERS: PCP Physician Assistant; Visit Provider Urology
DX: C67.9 Malignant neoplasm of bladder, unspecified (principal)
CPT/HCPCS: 99213

== ENCOUNTER → 2023-05-15 13:46 | Outpatient (BNVA) | payer OTHER, SELFPAY | PROVIDERS: PCP Physician Assistant; Visit Provider Urology | DX: C67.9 Malignant neoplasm of bladder, unspecified (principal) | CPT/HCPCS: 52000; 81003; 99212 ==

== ENCOUNTER 2023-05-19 10:04 | Emergency (ER) | payer OTHER, SELFPAY ==
--- NOTE | ~2023-05-19 | XR_ITS ---
EXAMINATION: XR LUMBOSACRAL SPINE CLINICAL INFORMATION: Low back pain status post lifting pop COMPARISON: None available. TECHNIQUE: Three views of the lumbosacral spine. FINDINGS: 5 lumbar type vertebral bodies with multilevel spurring. Mild anterior wedging of L1 seen on 2020 CT. Mild L4-L5 disc space narrowing also seen previously. Lower lumbar facet hypertrophic changes. Pedicles and SI joints within normal limits. XR/XR lumbar spine 2-3V IMPRESSION: Chronic degenerative type changes. No acute bony pathology.
[2023-05-19 10:16] VITALS: BP 125/82; PULSE 65; RESP 18; TEMP 36.4; O2SAT 97; BMI 35.8
--- NOTE | 2023-05-19 10:45 | ED.BACK ---
HPI - Back Pain/Injury General Chief Complaint: Back Pain/Injury Stated Complaint: Back Pain S/P Injury 05/18/23 Time Seen by Provider: 05/19/23 10:44 Source: patient, RN notes reviewed and old records reviewed Mode of arrival: ambulatory History of Present Illness HPI Narrative: 42-year-old male with past medical history of bladder CA presenting to the ED complaining of low back pain radiating around to lower abdomen S/P doing bent over rows at the gym yesterday. Reports feeling pop with immediate pain following. Pain worse with sitting, movement, and palpation. Admits to taking Tylenol yesterday, denies taking any pain medication today. Reports intermittent radiation down LLE. denies numbness, tingling, weakness, incontinence/ retention, fever, abdominal pain, nausea/vomiting MD elicited complaint: back pain Related Data Previous Rx's Medication Instructions Recorded acetaminophen 500 mg tablet 500 mg PO Q6H PRN fever or pain 05/19/23 (Tylenol Extra Strength) #14 tabs cyclobenzaprine 10 mg tablet 10 mg PO TID PRN muscle spasm #14 05/19/23 tabs ketorolac 10 mg tablet 10 mg PO TID PRN pain 5 days #15 05/19/23 tabs lidocaine 5 % topical patch 1 patch topical DAILY PRN pain #30 05/19/23 (Lidoderm) ea Allergies Allergy/AdvReac Type Severity Reaction Status Date / Time No Known Allergies Allergy Verified 05/15/23 14:10 Review of Systems Review of Systems: Constitutional: No Fever, No Chills ENT/Mouth: No Ear Pain, No Nasal Congestion, No sore throat, No Rhinorrhea, No Swallowing Difficulty Cardiovascular: No Chest Pain, No SOB Respiratory: No Cough, No Sputum, No Wheezing Gastrointestinal: No Nausea, No Vomiting, No Diarrhea, No Abdominal pain Genitourinary: No Dysuria, No Urinary Frequency, No Hematuria, No Urinary Incontinence/retention, No Flank Pain Musculoskeletal: + joint pain, No Myalgias, No Joint Swelling Skin: No Skin Lesions, No rash Neuro: No Weakness, No Numbness, No Paresthesias Yes all other systems are reviewed and are negative Constitutional: Constitutional: Reports as per HPI Neurologic: Denies Sensory deficit (Neuro) [facility] Past Medical History Attestation statement: The following information was validated with the patient. Source: old records reviewed Medical History Bladder cancer Surgical History Hx of cystoscopy Social History Social History Alcohol intake: current Alcohol intake frequency: does not drink Patient Tobacco Use Status: Former Tobacco user Quit Date: 2007 Tobacco use type: Cigarette Smoked in Last 30 Days: No Use of substances other than those prescribed or required for medical reasons: Yes Substance Use Type: Marijuana Advance Directives: No Advance Directives Information Provided: No Physical Exam Vital Signs: Vital Signs: Last Vital Signs Temp 97.6 F 05/19/23 10:16 Pulse 65 05/19/23 10:16 Resp 18 05/19/23 10:16 BP 125/82 05/19/23 10:16 Pulse Ox 97 05/19/23 10:16 O2 Del Method Room Air 05/19/23 10:16 BMI result Body Mass Index 35.8 Const: General: cooperative, healthy appearing and no acute distress Orientation/consciousness: patient oriented x3 Limitations: no limitations HEENT: Head: Yes normal to inspection and Yes atraumatic Ears: hearing grossly normal bilaterally General nose exam: Normal external nose present Face and sinus: Yes normal facial exam Eyes: General: appearance normal, both eyes and all related structures EOM: EOMs intact bilaterally Neck: Neck: Yes normal visual inspection and Yes no meningeal signs Resp: Effort & Inspection: normal respiratory effort and no respiratory distress Auscultation: clear to auscultation bilaterally Cardio: Rate: regular rate Heart sounds: S1 normal heart sound present and S2 normal heart sound present Peripheral pulses: Peripheral pulses 2+ throughout GI: Inspection: Yes normal to inspection Palpation (GI): Soft to palpation, nontender, no guarding and not rigid : General: Yes no CVA tenderness Back/Spine/Pelvis: Other: No midline cervical/thoracic/lumbar spinous tenderness/step-off or deformity. + bilateral lower lumbar MSK/ upper buttock tenderness to palpation reproducing subjective complaint. No erythema/rash or ecchymosis Back: no CVA tenderness Skin: Rashes: no rashes Wounds: no wounds Neuro: Other: Strength intact throughout. No saddle anesthesia. Sensation intact to light touch. Neurovascular intact distally General: patient oriented x3, gait normal, tone normal, moves all extremities, no meningeal signs and no focal motor deficits Cranial nerves: Yes CN's II-XII intact bilaterally Gait exam (Neuro): Normal gait present Sensory Exam: No Sensory deficit (Neuro) Extrem: General: Yes normal to inspection Course Course Course Narrative: XR lumbar spine 2-3V IMPRESSION: Chronic degenerative type changes. No acute bony pathology. Results discussed with patient including worrisome signs and symptoms and strict return precautions, and when to return to the emergency department. They verbalized understanding and feel safe for discharge at this time. Medications Administered Discontinued Medications Generic Name Dose Route Start Last Admin Trade Name Freq PRN Reason Stop Dose Admin Cyclobenzaprine HCl 10 mg 05/19/23 10:50 05/19/23 11:03 Cyclobenzaprine Hcl 10 Mg Tablet PO 05/19/23 10:51 10 mg ONCE ONE Administration Ketorolac Tromethamine 30 mg 05/19/23 10:50 05/19/23 11:02 Ketorolac Tromethamine 30 Mg/Ml Vial IM 05/19/23 10:51 30 mg ONCE ONE Administration Medical Decision Making Medical Decision Making [facility] Narrative: 42-year-old male with past medical history of bladder CA presenting to the ED complaining of low back pain radiating around to lower abdomen S/P doing bent over rows at the gym yesterday. on exam vital signs stable, NAD, nontoxic appearing, no midline spinous tenderness throughout, reproducible MSK bilateral lumbar tenderness. Ambulating with steady gait. No red flag symptoms or saddle anesthesia. Concern for MSK strain vs herniated disc. Low suspicion for pyelo/renal stone, appendicitis/diverticulitis, hernia, testicular torsion, cauda equina/cord compression Plan: XR, pain control, reassess Please refer to course for remaining clinical decision making, interpretation of labs/imaging results, and discussions with consultants and/or family members. Differential Diagnosis Differential Diagnoses: The differential diagnosis associated with the presentation includes As above Radiology Impression Discussion of test interpretation with radiology: I have reviewed the radiologist's reading. External Record Review External record reviewed: Inpatient record, Office record, Outpatient record, Prior outpatient labs, Prior outpatient radiology, Primary care record and Outside ED record Tests considered The following testing was considered but not selected: As above Prescription Management I considered prescription management with: Pain Medication Discharge Plan Discharge Clinical Impression: Lumbar radiculopathy Patient Disposition: Home, Self-Care Instructions: Acute Low Back Pain (ED) Additional Instructions: Your pain is likely musculoskeletal Flexeril is a muscle relaxer, take at night as it makes you drowsy, do not drive, drink alcohol, or operate machinery while taking it Toradol as an anti-inflammatory / pain medication, take with food Lidoderm patches are numbing patches, apply to painful area In addition take Tylenol at home If symptoms persist or worsen, pain becomes unbearable, you developed urinary retention or incontinence, or weakness return to the ED Prescriptions: New cyclobenzaprine 10 mg tablet 10 mg PO TID PRN (Reason: muscle spasm) Qty: 14 0RF acetaminophen [Tylenol Extra Strength] 500 mg tablet 500 mg PO Q6H PRN (Reason: fever or pain) Qty: 14 0RF ketorolac 10 mg tablet 10 mg PO TID PRN (Reason: pain) 5 Days Qty: 15 0RF lidocaine [Lidoderm] 5 % adhesive patch,medicated 1 patch topical DAILY MDD remove after 12 hours PRN (Reason: pain) Qty: 30 0RF Rx Instructions: leave on most painful area for up to 12 hrs No Action nitrofurantoin monohyd/m-cryst 100 mg capsule 100 mg PO ONCE Qty: 1 0RF lidocaine HCl 2 % jelly in applicator 10 ml intra-urethral ONCE Qty: 10 0RF Referrals: Tasha Abreu PA [Primary Care Provider] - Rakan Lopez MD, PhD [Physician] - Stand Alone Forms: Work/School Release Interventions: ED Discharge Assessment Last Done: 05/19/23 12:22 Discharge Date/Time: 05/19/23 12:22
[2023-05-19] MEDS: Ketorolac Tromethamine 30 MG/ML VIAL IM (11:02)
[2023-05-19] MEDS: Cyclobenzaprine HCl 10 MG TABLET PO (11:03)
== END 2023-05-19 12:22 | disposition home or self-care (01) ==
PROVIDERS: Emergency Provider Emergency Medicine; PCP Physician Assistant
DX: M54.16 Radiculopathy, lumbar region (principal); Z87.891 Personal history of nicotine dependence
CPT/HCPCS: 72100; 96372; 99284; J1885

== ENCOUNTER 2023-08-14 10:54 | Outpatient (REF) | payer OTHER, SELFPAY ==
[2023-08-14 19:54] LABS: Urine Cytology See Pathology rpt
== END 2023-08-14 10:55 | disposition home or self-care (01) ==
LOC: HO.LAB 10:54
PROVIDERS: PCP Physician Assistant; Visit Provider Urology
DX: C67.9 Malignant neoplasm of bladder, unspecified (principal); Z85.51 Personal history of malignant neoplasm of bladder
CPT/HCPCS: 52000; 81003; 88112

== ENCOUNTER 2023-08-14 10:54 | Outpatient (AMB) | payer OTHER, SELFPAY ==
--- NOTE | 2023-08-14 11:02 | A.OFFVIS_ITS ---
Intake Intake Visit Reasons: 3m/cysto Intake Note: Patient is Present for Cystoscopy Urology Med: None Antibiotic Allergy: None Blood Thinner: None URO- G Disposable Cystoscope lot: [id number] exp: 01/11/2025 Allergies No Known Allergies Allergy (Verified 08/14/23 11:03) HPI HPI Comments History of Present Illness Details Raymond is a pleasant male. He is a patient of Dr. Abreu. He is seen for the following urologic conditions - bladder cancer Here for 3 month cystoscopy Posterior wall healed Four month follow-up Bladder cancer. Initial TURBT January 2021. Pathology low-grade noninvasive. Treated with adjuvant gemcitabine due to young age Diagnosed January 2021 Intervention - 02/18 TURBT left sidewall lesion with g emcitabine - 07/22 TURBT side wall mitomycin-C Pathology 02/18 low-grade noninvasive large, 07/22 low-grade superficial Intermediate Risk Adjuvant therapy - 03/20 6 weeks induction gemcitabine, 08/21 6 weeks induction Check cystoscopy 05/21 NAD, 09/20 NAD, 11/20 NAD Check cytology - 05/21 NAD, 12/20 NAD, 07/22 small lesion dome, 05/23 NAD PFSH Medical History Bladder cancer Surgical History Hx of cystoscopy Social History Alcohol intake: current Alcohol intake frequency: does not drink Patient Tobacco Use Status: Former Tobacco user Quit Date: 2007 Tobacco use type: Cigarette Substance Use Type: Marijuana Review of Systems Const Denies chills and Denies fever(s) Card Reports no additional complaints and Denies syncope Resp Denies cough GI Denies abdominal pain and Denies heartburn Reports as per HPI and Denies change in libido Neuro Denies syncope Psych Denies change in libido Endo Denies change in libido Physical Exam Const General: cooperative, healthy appearing, comfortable and no acute distress Orientation/consciousness: patient oriented x3 HEENT Face and sinus: Yes normal facial exam Mouth: moist mucous membranes Neck Neck: Yes normal visual inspection, Yes full ROM and Yes trachea midline Chest Chest palpation & inspection: normal inspection of the chest Resp Effort & Inspection: normal respiratory effort, able to speak in complete sentences and no respiratory distress GI Inspection: Yes normal to inspection Back/Spine/Pelvis Cervical Spine: normal cervical lordosis Thoracic/Lumbar Spine: thoracic and lumbar spine normal to inspection Skin General skin exam: no rashes or lesions noted Neuro General: patient oriented x3, gait normal, tone normal and moves all extremities Extrem General: Yes normal to inspection and Yes capillary refill normal Office Procedures Cystoscopy Consent Discussed risk and benefit or proposed procedure with the patient. Information consent for procedure given to the patient. Discussed technical aspects, risks, benefits and alternatives in full. Addressed all of the patient's questions and concerns regarding the procedure. The patient demonstrated knowledge and understanding. They wish to proceed with this procedure. Preparation The patient was prepped in the usual manner. A putaway driver was present and in the room. Genitalia was prepped with betadine solution in a sterile manner. Lidocaine Jelly 2% was placed into the urethra and 16Fr flexible Olympus cystoscope was inserted into the meatus after adequate lubrication. Procedure Meatus uncircumcised Urethra anterior posterior urethra Prostatic Urethra unremarkable Bladder examination with retroflexion of cystoscope Bladder Orifices normal shape and position Bladder Capacity [ small medium large] Trabeculations [mild moderate severe] Cellule Formation [ Yes No] Diverticulum Formation [ none - severity location] Mucosal Erythema [mucosal erythema diffuse, patchy, mild, moderate, marked] Bladder Tumor [none - location, number, size] Meatus normal Urethra anterior posterior urethra normal Prostatic Urethra unremarkable Bladder examination with retroflexion of cystoscope Bladder Orifices normal shape and position Bladder Capacity medium Trabeculations mild Cellule Formation - Diverticulum Formation - Mucosal Erythema - Bladder Tumor - [id number] DISPOSABLE SCOPE URO-G FLEXIBLE SCOPE Procedure code (CPT) selection complete Office Meds lidocaine HCl 2 % mucosal jelly in applicator Performing Provider: Suraj Mccarthy MD Performing Location: [facility] [place] [facility] Administered by: Staci Corey RN on 08/14/23 11:12 Dose Route Admin Location Dispensed Lot Number Expiration Date [facility] [place]NOTE 2] Emulsion Operator 10 mL intra-urethral 10 mL nitrofurantoin monohydrate/macrocrystals 100 mg capsule Performing Provider: Suraj Mccarthy MD Performing Location: [facility] [place] [facility] Administered by: Staci Corey RN on 08/14/23 11:12 Dose Route Admin Location Dispensed Lot Number Expiration Date NDC Emulsion Operator 100 mg PO 1 cap naproxen 500 mg tablet Performing Provider: Suraj Mccarthy MD Performing Location: [facility] [place] [facility] Administered by: Staci Corey RN on 08/14/23 11:12 Dose Route Admin Location Dispensed Lot Number Expiration Date NDC Emulsion Operator 500 mg PO 1 tab Results AMB Urinalysis, Automated UA Leukoctes 0 Little/uL Last Edit by DINORAH Dunn on 08/14/23 11:10 UA Nitrite Negative Last Edit by Karolyn Robles A on 08/14/23 11:10 UA Urobilinogen 0.2 mg/dL Last Edit by Karolyn Robles [facility] on 08/14/23 11:1 0 UA Protein 0 mg/dL Last Edit by Karolyn Robles A on 08/14/23 11:10 UA pH 5.5 Last Edit by Karolyn Robles A on 08/14/23 11:10 UA Blood 0 Pranav/uL Last Edit by Karolyn Robles [facility] on 08/14/23 11:10 UA Specific [place] 1.030 Last Edit by Karolyn Robles [facility] on 08/14/23 11: 10 UA Ketone Negative Last Edit by Karolyn Robles [facility] on 08/14/23 11:10 UA Bilirubin 0 mg/dL Last Edit by Karolyn Robles A on 08/14/23 11:10 UA Glucose 0 mg/dL Last Edit by Karolyn Robles [facility] on 08/14/23 11:10 Results Reviewed Results Reviewed: Laboratory Last Values Urine pH (Auto) 5.5 08/14/23 11:02 Specific [place] (Auto) 1.030 08/14/23 11:02 Urine Protein (Auto) 0 mg/dL 08/14/23 11:02 Glucose (UA)(Auto) 0 mg/dL 08/14/23 11:02 Urine Ketones (Auto) Negative 08/14/23 11:02 Urine Blood (Auto) 0 Pranav/uL 08/14/23 11:02 Urine Nitrite (Auto) Negative 08/14/23 11:02 Urine Bilirubin (Auto) 0 mg/dL 08/14/23 11:02 Urine Urobilinogen (Auto) 0.2 mg/dL 08/14/23 11:02 Leukocyte Esterase (Auto) 0 Little/uL 08/14/23 11:02 Assessment & Plan Assessment & Plan (1) Bladder cancer: Comment: January 2021 low-grade T1 medium with adjuvant gemcitabine Superficial recurrence 08/21 Code(s): C67.9 - Malignant neoplasm of bladder, unspecified Plan Clear bladder Orders: Orders Urine Cytology Today C67.9 - Malignant neoplasm of bladder, unspecified AMB Urinalysis Automated Today Z13.9 - Encounter for screening, unspecified AMB Cystoscopy Today C67.9 - Malignant neoplasm of bladder, unspecified Patient Instructions: Imaging studies, laboratory and physical exam results were discussed and reviewed in detail. No major barriers to patient understanding were identified. An opportunity to ask questions regarding the treatment plan was provided. All questions were answered. The patient expressed understanding and agreement with the above treatment plan. The patient is aware they should contact our office by phone for worsening of their current condition or the appearance of new urologic symptoms. Compliance is encouraged with any medications and followup testing that is ordered. It is a privilege to participate in the urologic care of your patient. If you have any questions or concerns regarding treatment for the above conditions, or other urologic issues, please do not hesitate to contact me. The office telephone contact is [phone]. This note is constructed using voice recognition software. While every effort has been made to ensure accuracy able bodied tankerman errors may have been included. Yours sincerely, Dr Suraj Mccarthy MD, L[facility] - Urology Providers of Expert, Compassionate Care for the Genitourinary System Coding Level of Care Code Procedure Only Diagnoses Bladder cancer C67.9 CPT Codes Cystoscopy - CPT: 32134-[id number] ([id number])
== END 2023-08-14 11:33 | disposition home or self-care (01) ==
PROVIDERS: PCP Physician Assistant; Visit Provider Urology
DX: C67.9 Malignant neoplasm of bladder, unspecified (principal); Z13.9 Encounter for screening, unspecified
CPT/HCPCS: 52000

== ENCOUNTER 2023-12-18 09:55 | Outpatient (REF) | payer OTHER, SELFPAY | END 2023-12-18 09:56 | disposition home or self-care (01) | LOC: HO.LAB 09:55 | PROVIDERS: PCP Physician Assistant; Visit Provider Urology | DX: C67.9 Malignant neoplasm of bladder, unspecified (principal) | CPT/HCPCS: 52000; 81003; 88121 ==

== ENCOUNTER 2023-12-18 09:55 | Outpatient (AMB) | payer OTHER, SELFPAY ==
--- NOTE | 2023-12-18 10:06 | A.OFFVIS_ITS ---
Intake Visit Reasons: cysto check Intake Note: Patient is Present for Cystoscopy Urology Med:None Antibiotic Allergy:None Blood Thinner:None URO- G Disposable Cystoscope lot: [id number] exp:07/09/2026 Allergies No Known Allergies Allergy (Verified 12/18/23 10:09) HPI Comments Details: Raymond is a pleasant male. He is a patient of Dr. Abreu. He is seen for the following urologic conditions - bladder cancer Four month follow-up cysto Normal in bladder Evidence of immunotherapy Bladder cancer. Initial TURBT January 2021. Pathology low-grade noninvasive. Treated with adjuvant gemcitabine due to young age Diagnosed January 2021 Intervention - 02/18 TURBT left sidewall lesion with gemcitabine - 07/22 TURBT side wall mitomycin-C Pathology 02/18 low-grade noninvasive large, 07/22 low-grade superficial Intermediate Risk Adjuvant therapy - 03/20 6 weeks induction gemcitabine, 08/21 6 weeks induction Check cystoscopy 05/21 NAD, 09/20 NAD, 07/22 wall lesion, 11/20 NAD Check cytology - 05/21 NAD, 12/20 NAD, 07/22 NAD, 05/23 NAD PFSH Medical History Bladder cancer Surgical History Hx of cystoscopy Social History Alcohol intake: current Alcohol intake frequency: does not drink Patient Tobacco Use Status: Former Tobacco user Quit Date: 2007 Tobacco use type: Cigarette Substance Use Type: Marijuana Review of Systems Const Denies chills and Denies fever(s) Card Reports no additional complaints and Denies syncope Resp Denies cough GI Denies abdominal pain and Denies heartburn Reports as per HPI and Denies change in libido Neuro Denies syncope Psych Denies change in libido Endo Denies change in libido Physical Exam Const General: cooperative, healthy appearing, comfortable and no acute distress Orientation/consciousness: patient oriented x3 HEENT Face and sinus: Yes normal facial exam Mouth: moist mucous membranes Neck Neck: Yes normal visual inspection, Yes full ROM and Yes trachea midline Chest Chest palpation & inspection: normal inspection of the chest Resp Effort & Inspection: normal respiratory effort, able to speak in complete sentences and no respiratory distress GI Inspection: Yes normal to inspection Back/Spine/Pelvis Cervical Spine: normal cervical lordosis Thoracic/Lumbar Spine: thoracic and lumbar spine normal to inspection Skin General skin exam: no rashes or lesions noted Neuro General: patient oriented x3, gait normal, tone normal and moves all extremities Extrem General: Yes normal to inspection and Yes capillary refill normal Office Procedures Cystoscopy Consent Discussed risk and benefit or proposed procedure with the patient. Information consent for procedure given to the patient. Discussed technical aspects, risks, benefits and alternatives in full. Addressed all of the patient's questions and concerns regarding the procedure. The patient demonstrated knowledge and understanding. They wish to proceed with this procedure. Preparation The patient was prepped in the usual manner. A oil pump station operator chief was present and in the room. Genitalia was prepped with betadine solution in a sterile manner. Lidocaine Jelly 2% was placed into the urethra and 16Fr flexible Olympus cystoscope was inserted into the meatus after adequate lubrication. Procedure Cystoscopy performed using a disposable Urovue digital 16 Dominican cystoscope. Meatus circumcised Urethra anterior and posterior laser normal Prostatic Urethra unremarkable Bladder examination with retroflexion of cystoscope Bladder Orifices normal shape and position Bladder Capacity normal Trabeculations grade 1 Cellule Formation no Diverticulum Formation none Mucosal Erythema immunotherapy changes - trigonitis Bladder Tumor scarring [id number] DISPOSABLE SCOPE URO-G FLEXIBLE SCOPE Procedure code (CPT) selection complete Office Meds lidocaine HCl 2 % mucosal jelly in applicator Performing Provider: Suraj Mccarthy MD Performing Location: [facility] [place] [facility] Administered by: Staci Corey RN on 12/18/23 10:21 Dose Route Admin Location Dispensed Lot Number Expiration Date NDC Orthotic Assistant 10 mL intra-urethral 10 mL nitrofurantoin monohydrate/macrocrystals 100 mg capsule Performing Provider: Suraj Mccarthy MD Performing Location: [facility] [place] [facility] Administered by: Staci Corey RN on 12/18/23 10:21 Dose Route Admin Location Dispensed Lot Number Expiration Date NDC Orthotic Assistant 100 mg PO 1 cap naproxen 500 mg tablet Performing Provider: Suraj Mccarthy MD Performing Location: [facility] [place] [facility] Administered by: Staci Corey RN on 12/18/23 10:21 Dose Route Admin Location Dispensed Lot Number Expiration Date NDC Orthotic Assistant 500 mg PO 1 tab Results AMB Urinalysis, Automated UA Leukoctes 0 Little/uL Last Edit by DINORAH Dunn on 12/18/23 10:21 UA Nitrite Negative Last Edit by Karolyn Robles A on 12/18/23 10:21 UA Urobilinogen 0.2 mg/dL Last Edit by Karolyn Robles A on 12/18/23 10:2 1 UA Protein 0 mg/dL Last Edit by Karolyn Robles A on 12/18/23 10:21 UA pH 6.5 Last Edit by Karolyn Robles A on 12/18/23 10:21 UA Blood 0 Pranav/uL Last Edit by Karolyn Robles [facility] on 12/18/23 10:21 UA Specific [place] 1.010 Last Edit by Karolyn Robles [facility] on 12/18/23 10: 21 UA Ketone Negative Last Edit by Karolyn Robles [facility] on 12/18/23 10:21 UA Bilirubin 0 mg/dL Last Edit by Karolyn Robles [facility] on 12/18/23 10:21 UA Glucose 0 mg/dL Last Edit by Karolyn Robles [facility] on 12/18/23 10:21 Assessment & Plan Assessment & Plan (1) Bladder cancer: Comment: January 2021 low-grade T1 medium with adjuvant gemcitabine Superficial recurrence 08/21 Code(s): C67.9 - Malignant neoplasm of bladder, unspecified Category: Medical Plan Four month follow-up repeat cysto Orders: Orders FISH Bladder Cancer Today C67.9 - Malignant neoplasm of bladder, unspecified AMB Cystoscopy Today C67.9 - Malignant neoplasm of bladder, unspecified AMB Urinalysis Automated Today C67.9 - Malignant neoplasm of bladder, unspecified, Z13.9 - Encounter for screening, unspecified Patient Instructions: Imaging studies, laboratory and physical exam results were discussed and reviewed in detail. No major barriers to patient understanding were identified. An opportunity to ask questions regarding the treatment plan was provided. All questions were answered. The patient expressed understanding and agreement with the above treatment plan. The patient is aware they should contact our office by phone for worsening of their current condition or the appearance of new urologic symptoms. Compliance is encouraged with any medications and followup testing that is ordered. It is a privilege to participate in the urologic care of your patient. If you have any questions or concerns regarding treatment for the above conditions, or other urologic issues, please do not hesitate to contact me. The office telephone contact is [phone]. This note is constructed using voice recognition software. While every effort has been made to ensure accuracy superintendent transmission errors may have been included. Yours sincerely, Dr Suraj Mccarthy MD, [facility] - Urology Providers of Expert, Compassionate Care for the Genitourinary System
== END 2023-12-18 10:39 | disposition home or self-care (01) ==
PROVIDERS: PCP Physician Assistant; Visit Provider Urology
DX: C67.9 Malignant neoplasm of bladder, unspecified (principal); Z13.9 Encounter for screening, unspecified
CPT/HCPCS: 52000

== ENCOUNTER 2024-04-22 09:58 | Outpatient (AMB) | payer OTHER, SELFPAY ==
--- NOTE | 2024-04-22 10:18 | A.OFFVIS_ITS ---
Intake Visit Reasons: Cystoscopy(Bladder Ca) Intake Note: Patient is Present for Cystoscopy Urology Med: None Antibiotic Allergy: None Blood Thinner: None URO- G Disposable Cystoscope lot:[id number] exp: 09/04/2025 Allergies No Known Allergies Allergy (Verified 04/29/24 11:52) HPI Comments Details: Raymond is a pleasant male. He is a patient of Dr. Abreu. He is seen for the following urologic conditions - bladder cancer Four month follow-up cysto Normal bladder Evidence of immunotherapy Bladder cancer. Initial TURBT January 2021. Pathology low-grade noninvasive. Treated with adjuvant gemcitabine due to young age Diagnosed January 2021 Intervention - 02/18 TURBT left sidewall lesion with gemcitabine - 07/22 TURBT side wall mitomycin-C Pathology 02/18 low-grade noninvasive large, 07/22 low-grade superficial Intermediate Risk Adjuvant therapy - 03/20 6 weeks induction gemcitabine, 08/21 6 weeks induction Check cystoscopy 05/21 NAD, 09/20 NAD, 07/22 wall lesion, 11/20 NAD, 05/24 NAD Check cytology - 05/21 NAD, 12/20 NAD, 07/22 NAD, 05/23 NAD [facility] Medical History Bladder cancer Surgical History Hx of cystoscopy Social History Alcohol intake: current Alcohol intake frequency: does not drink Patient Tobacco Use Status: Former Tobacco user Tobacco use type: Cigarette Substance Use Type: Marijuana Office Procedures Cystoscopy Consent Discussed risk and benefit or proposed procedure with the patient. Information consent for procedure given to the patient. Discussed technical aspects, risks, benefits and alternatives in full. Addressed all of the patient's questions and concerns regarding the procedure. The patient demonstrated knowledge and understanding. They wish to proceed with this procedure. Preparation The patient was prepped in the usual manner. A foundation digger was present and in the room. Genitalia was prepped with betadine solution in a sterile manner. Lidocaine Jelly 2% was placed into the urethra and 16Fr flexible Olympus cystoscope was inserted into the meatus after adequate lubrication. Additional procedure code (CPT) needed (not performed) Office Meds lidocaine HCl 2 % mucosal jelly in applicator Performing Provider: Suraj Mccarthy MD [place] [facility] [place] [facility] Documented (not given) by: Avinash Finn LPN on 04/22/24 10:29 Reason Not Given: No Longer Necessary nitrofurantoin monohydrate/macrocrystals 100 mg capsule Performing Provider: Suraj Mccarthy MD Performing [place] [facility] [place] [facility] Documented (not given) by: Avinash Finn LPN on 04/22/24 10:29 Reason Not Given: No Longer Necessary naproxen 500 mg tablet Performing Provider: Suraj Mccarthy MD Performing Location[place] [facility] [place] [facility] Documented (not given) by: Avinash Finn LPN on 04/22/24 10:29 Reason Not Given: No Longer Necessary Results AMB Urinalysis, Automated UA Leukoctes 0 Little/uL Last Edit by Karolyn Robles [facility] on 04/22/24 10:34 UA Nitrite Negative Last Edit by Karolyn Robles [facility] on 04/22/24 10:34 UA Urobilinogen 0.2 mg/dL Last Edit by Karolyn Robles A on 04/22/24 10:3 4 UA Protein 0 mg/dL Last Edit by Karolyn Robles [facility] on 04/22/24 10:34 UA pH 6.0 Last Edit by Karolyn Robles A on 04/22/24 10:34 UA Blood 0 Pranav/uL Last Edit by Karolyn Robles [facility] on 04/22/24 10:34 UA Specific [place] 1.015 Last Edit by Karolyn Robles A on 04/22/24 10: 34 UA Ketone Negative Last Edit by Karolyn Robles A on 04/22/24 10:34 UA Bilirubin 0 mg/dL Last Edit by Karolyn Robles A on 04/22/24 10:34 UA Glucose 0 mg/dL Last Edit by Karolyn Robles A on 04/22/24 10:34 AMB Urinalysis, Automated UA Leukoctes 0 Little/uL Last Edit by Karolyn Robles [facility] on 04/22/24 10:42 UA Nitrite Negative Last Edit by Karolyn Robles [facility] on 04/22/24 10:42 UA Urobilinogen 0.2 mg/dL Last Edit by Karolyn Robles, RMA on 04/22/24 10:4 2 UA Protein 0 mg/dL Last Edit by Karolyn Robles, RMA on 04/22/24 10:42 UA pH 6.0 Last Edit by Karolyn Robles, RMA on 04/22/24 10:42 UA Blood 0 Pranav/uL Last Edit by Karolyn Robles, RMA on 04/22/24 10:42 UA Specific [place] 1.015 Last Edit by Karolyn Robles, RMA on 04/22/24 10: 42 UA Ketone Negative Last Edit by Karolyn Robles, RMA on 04/22/24 10:42 UA Bilirubin 0 mg/dL Last Edit by Karolyn Robles, RMA on 04/22/24 10:42 UA Glucose 0 mg/dL Last Edit by Karolyn Robles, A on 04/22/24 10:42 Results Reviewed Results Reviewed: Laboratory Last Values Urine pH (Auto) 6.0 04/22/24 10:41 Specific [place] (Auto) 1.015 04/22/24 10:41 Urine Protein (Auto) 0 mg/dL 04/22/24 10:41 Glucose (UA)(Auto) 0 mg/dL 04/22/24 10:41 Urine Ketones (Auto) Negative 04/22/24 10:41 Urine Blood (Auto) 0 Pranav/uL 04/22/24 10:41 Urine Nitrite (Auto) Negative 04/22/24 10:41 Urine Bilirubin (Auto) 0 mg/dL 04/22/24 10:41 Urine Urobilinogen (Auto) 0.2 mg/dL 04/22/24 10:41 Leukocyte Esterase (Auto) 0 Little/uL 04/22/24 10:41 Assessment & Plan Assessment & Plan Orders: Orders AMB Cystoscopy 04/22/24 C67.9 - Malignant neoplasm of bladder, unspecified AMB Urinalysis Automated 04/22/24 Z13.9 - Encounter for screening, unspecified, C67.9 - Malignant neoplasm of bladder, unspecified AMB Urinalysis Automated 04/22/24 Z13.9 - Encounter for screening, unspecified FISH Bladder Cancer 04/22/24 C67.9 - Malignant neoplasm of bladder, unspecified Coding
== END 2024-04-22 10:48 | disposition home or self-care (01) ==
PROVIDERS: PCP Physician Assistant; Visit Provider Urology
DX: C67.9 Malignant neoplasm of bladder, unspecified (principal)

== ENCOUNTER 2024-04-22 09:58 | Outpatient (REF) | payer OTHER, SELFPAY | END 2024-04-22 09:59 | disposition home or self-care (01) | LOC: HO.LAB 09:58 | PROVIDERS: PCP Physician Assistant; Visit Provider Urology | DX: C67.9 Malignant neoplasm of bladder, unspecified (principal) | CPT/HCPCS: 81003 ==

== ENCOUNTER 2024-04-29 11:19 | Outpatient (REF) | payer SELFPAY | END 2024-04-29 11:20 | disposition home or self-care (01) | LOC: HO.LAB 11:19 | PROVIDERS: PCP Physician Assistant; Visit Provider Urology | DX: C67.9 Malignant neoplasm of bladder, unspecified (principal) | CPT/HCPCS: 52000; 88121; 99212 ==

== ENCOUNTER 2024-04-29 11:19 | Outpatient (AMB) | payer OTHER, SELFPAY ==
--- NOTE | 2024-04-29 11:48 | A.OFFVIS_ITS ---
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 He is a patient of Dr. Abreu. He is seen for the following urologic conditions - bladder cancer Four month follow-up cystoscopy NAD Move to 6m f/u Bladder cancer. Initial TURBT January 2021. Pathology low-grade noninvasive. Treated with adjuvant gemcitabine due to young age Diagnosed January 2021 Intervention - 02/18 TURBT left sidewall lesion with gemcitabine - 07/22 TURBT side wall mitomycin-C Pathology 02/18 low-grade noninvasive large, 07/22 low-grade superficial Intermediate Risk Adjuvant therapy - 03/20 6 weeks induction gemcitabine, 08/21 6 weeks induction Check cystoscopy 05/21 NAD, 09/20 NAD, 07/22 wall lesion, 11/20 NAD, 04/23 NAD Check cytology - 05/21 NAD, 12/20 NAD, 07/22 NAD, 05/23 NAD, 12/22 NAD PFSH Medical History Bladder cancer Surgical History Hx of cystoscopy Social History Alcohol intake: current Alcohol intake frequency: does not drink Patient Tobacco Use Status: Former Tobacco user Tobacco use type: Cigarette Substance Use Type: Marijuana Review of Systems Const Denies chills and Denies fever(s) Card Reports no additional complaints and Denies syncope Resp Denies cough GI Denies abdominal pain and Denies heartburn Reports as per HPI and Denies change in libido Neuro Denies syncope Psych Denies change in libido Endo Denies change in libido Physical Exam Const General: cooperative, healthy appearing, comfortable and no acute distress Orientation/consciousness: patient oriented x3 HEENT Face and sinus: Yes normal facial exam Mouth: moist mucous membranes Neck Neck: Yes normal visual inspection, Yes full ROM and Yes trachea midline Chest Chest palpation & inspection: normal inspection of the chest Resp Effort & Inspection: normal respiratory effort, able to speak in complete sentences and no respiratory distress GI Inspection: Yes normal to inspection Back/Spine/Pelvis Cervical Spine: normal cervical lordosis Thoracic/Lumbar Spine: thoracic and lumbar spine normal to inspection Skin General skin exam: no rashes or lesions noted Neuro General: patient oriented x3, gait normal, tone normal and moves all extremities Extrem General: Yes normal to inspection and Yes capillary refill normal Office Procedures Cystoscopy Consent Discussed risk and benefit or proposed procedure with the patient. Information consent for procedure given to the patient. Discussed technical aspects, risks, benefits and alternatives in full. Addressed all of the patient's questions and concerns regarding the procedure. The patient demonstrated knowledge and understanding. They wish to proceed with this procedure. Preparation The patient was prepped in the usual manner. A caustic loader was present and in the room. Genitalia was prepped with betadine solution in a sterile manner. Lidocaine Jelly 2% was placed into the urethra and 16Fr flexible Olympus cystoscope was inserted into the meatus after adequate lubrication. Procedure Cystoscopy performed using a disposable Urovue digital 16 [place] cystoscope. Meatus circumcised Urethra anterior and posterior urethra normal Prostatic Urethra unremarkable Bladder examination with retroflexion of cystoscope Bladder Orifices normal shape and position Bladder Capacity median Trabeculations mild Cellule Formation no Diverticulum Formation no Mucosal Erythema none Bladder Tumor none [id number] DISPOSABLE SCOPE URO-G FLEXIBLE SCOPE Procedure code (CPT) selection complete Office Meds lidocaine HCl 2 % mucosal jelly in applicator Performing Provider: Suraj Mccarthy MD Performing Location: [facility] [place] [facility] Administered by: Avinash Finn LPN on 04/29/24 12:03 Dose Route Admin Location Dispensed Lot Number Expiration Date [facility] Toxicologist 10 mL intra-urethral 10 mL nitrofurantoin monohydrate/macrocrystals 100 mg capsule Performing Provider: Suraj Mccarthy MD Performing Location: [facility] [place] [facility] Administered by: Avinash Finn LPN on 04/29/24 12:03 Dose Route Admin Location Dispensed Lot Number Expiration Date [facility] Toxicologist 100 mg PO 1 cap naproxen 500 mg tablet Performing Provider: Suraj Mccarthy MD Performing Location: [facility] [place] [facility] Administered by: Avinash Finn LPN on 04/29/24 12:03 Dose Route Admin Location Dispensed Lot Number Expiration Date [facility] Toxicologist 500 mg PO 1 tab Assessment & Plan Assessment & Plan (1) Bladder cancer: Comment: January 2021 low-grade T1 medium with adjuvant gemcitabine Superficial recurrence 08/21 Code(s): C67.9 - Malignant neoplasm of bladder, unspecified Category: Medical Plan Six-month follow-up cysto Orders: Orders AMB Cystoscopy 04/29/24 C67.9 - Malignant neoplasm of bladder, unspecified AMB Urinalysis Automated 04/29/24 Z13.9 - Encounter for screening, unspecified FISH Bladder Cancer 04/29/24 C67.9 - Malignant neoplasm of bladder, unspecified Patient Instructions: Imaging studies, laboratory and physical exam results were discussed and reviewed in detail. No major barriers to patient understanding were identified. An opportunity to ask questions regarding the treatment plan was provided. All questions were answered. The patient expressed understanding and agreement with the above treatment plan. The patient is aware they should contact our office by phone for worsening of their current condition or the appearance of new urologic symptoms. Compliance is encouraged with any medications and followup testing that is ordered. It is a privilege to participate in the urologic care of your patient. If you have any questions or concerns regarding treatment for the above conditions, or other urologic issues, please do not hesitate to contact me. The office telephone contact is [phone]. This note is constructed using voice recognition software. While every effort has been made to ensure accuracy pack master errors may have been included. Yours sincerely, Dr Suraj Mccarthy MD, [facility] - Urology Providers of Expert, Compassionate Care for the Genitourinary System Coding Level of Care Code Est Pt Level 3 (00510) Diagnoses Bladder cancer C67.9 CPT Codes Cystoscopy - CPT: [id number] ([id number])
== END 2024-04-29 12:33 | disposition home or self-care (01) ==
PROVIDERS: PCP Physician Assistant; Visit Provider Urology
DX: C67.9 Malignant neoplasm of bladder, unspecified (principal)
CPT/HCPCS: 52000; 99213

== ENCOUNTER 2024-10-25 17:27 | Emergency (ER) | payer MEDICAID, SELFPAY ==
--- NOTE | ~2024-10-25 | XR_ITS ---
CLINICAL HISTORY: thumb, lac over MCP joint 3 view left 1st digit Comparison: None Findings: Bones intact. No dislocations. Chronic subchondral cystic changes of the ulnar styloid process. No erosions. No radiopaque foreign body. IMPRESSION: 1. No acute findings This document has been electronically signed by: Marley Yates MD on 10/25/2024 18:53:10
[2024-10-25 17:57] VITALS: BP 154/73; PULSE 55; RESP 18; TEMP 36.9; O2SAT 98; BMI 33.3
--- NOTE | 2024-10-25 17:57 | ED.GENADULT ---
HPI - General Adult General Chief complaint: Wound/Laceration Stated complaint: L thumb lac Time Seen by Provider: 10/25/24 22:29 Source: patient Limitations: no limitations History of Present Illness ED Provider: Kelly Lozano PA-C HPI narrative: 43-year-old male presents with left thumb laceration. 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 Tetanus up-to-date. Related Data Previous Rx's ?Medication ?Instructions ?Recorded acetaminophen 500 mg tablet 500 mg PO Q6H PRN fever or pain 05/19/23 (Tylenol Extra Strength) #14 tabs cyclobenzaprine 10 mg tablet 10 mg PO TID PRN muscle spasm #14 05/19/23 tabs ketorolac 10 mg tablet 10 mg PO TID PRN pain 5 days #15 05/19/23 tabs lidocaine 5 % topical patch 1 patch topical DAILY PRN pain #30 05/19/23 (Lidoderm) ea Allergies Allergy/AdvReac Type Severity Reaction Status Date / Time No Known Allergies Allergy Verified 10/25/24 17:58 Review of Systems Review of Systems: Yes all other systems are reviewed and are negative Constitutional: Constitutional: Denies fatigue and Denies fever(s) Musculoskeletal: Musculoskeletal: Denies arthralgias, Denies joint swelling, Denies numbness and Denies tingling Integumentary/Breasts: Skin/Breast: Reports wounds Neurologic: Denies numbness and Denies tingling Endocrine: Endocrine: Denies fatigue PMFSH Past Medical History Attestation statement: The following information was validated with the patient. Medical History Bladder cancer Surgical History Hx of cystoscopy Social History Social History Alcohol intake: current Alcohol intake frequency: does not drink Patient Tobacco Use Status: Former Tobacco user Tobacco use type: Cigarette Substance Use Type: Marijuana Advance Directives: No Advance Directives Information Provided: No Do you have a plan to hurt others: No Plan Physical Exam ED Vital Signs: Vital Signs - 24 hr 10/25/24 17:57 10/25/24 22:36 Temperature 98.4 F 98.2 F Pulse Rate 55 60 Respiratory Rate 18 18 Blood Pressure 154/73 H 148/76 H Pulse Oximetry 98 98 Oxygen Delivery Method Room Air Room Air BMI result Body Mass Index 33.3 Const Other: alert Orientation/consciousness: patient oriented x3 Resp Effort & Inspection: normal respiratory effort Cardio Other: normal peripheral perfusion Skin Other: warm dry no rash Neuro General: patient oriented x3, no focal motor deficits and CN's II-XI intact bilaterally Extrem Other: 3 cm linear laceration over the dorsal aspect of the left thumb no longer bleeding is superficial Psych Other: cooperative Course Course Course Narrative: This is a rapid medical exam performed by Marisa Newman NP: Additional HPI, ROS, PE not included below will be deferred to primary provider. Patient is a 43-year-old right hand dominant male presenting with laceration to left thumb from a watch crystal edge grinder around 2 hours ago. Unsure last Tdap. 1cm lac over MCP joint, no active bleeding. Plan: Tdap ordered, needs 1-2 sutures Medications Administered Discontinued Medications Generic Name Dose Route Start Last Admin Trade Name Freq PRN Reason Stop Dose Admin Diphtheria/Tetanus/Acell Pertussis 0.5 ml 10/25/24 18:00 10/25/24 22:05 Diphth,Pertus(Acell),Tet Adult 0.5 Ml Syringe IM 10/25/24 18:01 Not Given .ONCE ONE Lidocaine/Epinephrine 10 ml 10/25/24 22:29 10/25/24 22:52 Lidocaine Hcl 1%/Epi 1:100,000 10 Ml Vial INFILTRATI 10/25/24 22:30 10 ml ONCE ONE Administration Procedures Laceration Laceration 1: Site: hand Side (If applicable): left Size (cm): 3 Description: linear Depth: simple, single layer Local Anesthetic: lidocaine 1% and with epi Amount of anesthesia used (mL): 1.5 Pre-repair: irrigated extensively Skin layer closed with: nylon Size (cm): 4-0 Number of sutures: 6 Technique: simple, interrupted Medical Decision Making Medical Decision Making [facility] Narrative: 43-year-old male presents with left thumb laceration. 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 Tetanus up-to-date. no chronic issues History: Per patient I have considered the following differential diagnoses: Open fracture, laceration, abrasion, excoriation Plan: X-ray obtained from triage there was no communication with the bone, it require simple repair, tetanus is up-to-date Discharge Plan Discharge Clinical Impression: Laceration of left thumb Patient Disposition: Home, Self-Care Instructions: Laceration (ED) Additional Instructions: 6 stitches were used to repair the laceration, they can be removed in 7 days. Watch for signs of infection which would include redness, swelling, discharge from the site or a fever. Prescriptions: No Action cyclobenzaprine 10 mg tablet 10 mg PO TID PRN (Reason: muscle spasm) Qty: 14 0RF acetaminophen [Tylenol Extra Strength] 500 mg tablet 500 mg PO Q6H PRN (Reason: fever or pain) Qty: 14 0RF ketorolac 10 mg tablet 10 mg PO TID PRN (Reason: pain) 5 Days Qty: 15 0RF lidocaine [Lidoderm] 5 % adhesive patch,medicated 1 patch topical DAILY MDD remove after 12 hours PRN (Reason: pain) Qty: 30 0RF Rx Instructions: leave on most painful area for up to 12 hrs nitrofurantoin monohyd/m-cryst 100 mg capsule 100 mg PO ONCE Qty: 1 0RF lidocaine HCl 2 % jelly in applicator 10 ml intra-urethral ONCE Qty: 10 0RF Print Language: Other
--- NOTE | 2024-10-25 22:05 | PC.NURSE ---
Last Tdap 2020
[2024-10-25 22:36] VITALS: BP 148/76; PULSE 60; RESP 18; TEMP 36.8; O2SAT 98
[2024-10-25] MEDS: Lidocaine HCl 1%/Epi 1:100,000 10 ML VIAL INFILTRATI (22:52)
[2024-10-25 23:29] VITALS: BP 148/76; PULSE 60; RESP 18; TEMP 36.8; O2SAT 98
== END 2024-10-25 23:30 | disposition home or self-care (01) ==
PROVIDERS: Emergency Provider Emergency Medicine Emergency Medical Services; PCP Physician Assistant
DX: S61.012A Laceration without foreign body of left thumb without damage to nail, initial encounter (principal); M79.642 Pain in left hand; W26.9XXA Contact with unspecified sharp object(s), initial encounter; Y93.9 Activity, unspecified; Y92.9 Unspecified place or not applicable; Y99.0 Civilian activity done for income or pay; Z87.891 Personal history of nicotine dependence
CPT/HCPCS: 12002; 73140; 99283; 99284; J2004

== ENCOUNTER → 2024-10-25 18:00 | Outpatient (BNV) | payer OTHER, SELFPAY | PROVIDERS: PCP Physician Assistant; Visit Provider Radiology Diagnostic Radiology | DX: S61.012A Laceration without foreign body of left thumb without damage to nail, initial encounter (principal) | CPT/HCPCS: 73140 ==

== ENCOUNTER 2024-11-17 14:58 | Outpatient (REF) | payer OTHER, SELFPAY ==
[2024-11-17 17:50] LABS: Urine Cytology See Pathology rpt
== END 2024-11-17 14:59 | disposition home or self-care (01) ==
LOC: HO.LAB 14:58
PROVIDERS: PCP Physician Assistant; Visit Provider Urology
DX: C67.9 Malignant neoplasm of bladder, unspecified (principal); Z13.9 Encounter for screening, unspecified
CPT/HCPCS: 52000; 81003; 88112; 99212

== ENCOUNTER 2024-11-17 14:58 | Outpatient (AMB) | payer OTHER, SELFPAY ==
--- NOTE | 2024-11-17 15:13 | MHC.OFFVIS ---
Intake Visit Reasons: cysto(Bladder Ca) Intake Note: Patient is present for Cystoscopy Urology Medication:NONE Antibiotic Allergy:NONE Blood Thinner:NONE Lot:[id number] Exp:07/04/27 Airport Tower Controller Required: No Allergies No Known Allergies Allergy (Verified 11/17/24 15:13) HPI Comments Details: Raymond is a pleasant male. He is a patient of Dr. Abreu. He is seen for the following urologic conditions - bladder cancer Six-month follow-up NAD Continue six-month follow-up to January 2025 Bladder cancer. Initial TURBT January 2021. Pathology low-grade noninvasive. Treated with adjuvant gemcitabine due to young age Diagnosed January 2021 Intervention - 02/18 TURBT left sidewall lesion with gemcitabine - 07/22 TURBT side wall mitomycin-C Pathology 02/18 low-grade noninvasive large, 07/22 low-grade superficial Intermediate Risk Adjuvant therapy - 03/20 6 weeks induction gemcitabine, 08/21 6 weeks induction Check cystoscopy 05/21 NAD, 09/20 NAD, 07/22 wall lesion, 11/20 NAD, 04/23 NAD Check cytology - 05/21 NAD, 12/20 NAD, 07/22 NAD, 05/23 NAD, 12/22 NAD PFSH Medical History Bladder cancer Surgical History Hx of cystoscopy Social History Alcohol intake: current Alcohol intake frequency: does not drink Patient Tobacco Use Status: Former Tobacco user Tobacco use type: Cigarette Substance Use Type: Marijuana Review of Systems Const Denies chills and Denies fever(s) Card Reports no additional complaints and Denies syncope Resp Denies cough GI Denies abdominal pain and Denies heartburn Reports as per HPI and Denies change in libido Neuro Denies syncope Psych Denies change in libido Endo Denies change in libido Physical Exam Const General: cooperative, healthy appearing, comfortable and no acute distress Orientation/consciousness: patient oriented x3 HEENT Face and sinus: Yes normal facial exam Mouth: moist mucous membranes Neck Neck: Yes normal visual inspection, Yes full ROM and Yes trachea midline Chest Chest palpation & inspection: normal inspection of the chest Resp Effort & Inspection: normal respiratory effort, able to speak in complete sentences and no respiratory distress GI Inspection: Yes normal to inspection Back/Spine/Pelvis Cervical Spine: normal cervical lordosis Thoracic/Lumbar Spine: thoracic and lumbar spine normal to inspection Skin General skin exam: no rashes or lesions noted Neuro General: patient oriented x3, gait normal, tone normal and moves all extremities Extrem General: Yes normal to inspection and Yes capillary refill normal Office Procedures Cystoscopy Consent Discussed risk and benefit or proposed procedure with the patient. Information consent for procedure given to the patient. Discussed technical aspects, risks, benefits and alternatives in full. Addressed all of the patient's questions and concerns regarding the procedure. The patient demonstrated knowledge and understanding. They wish to proceed with this procedure. Preparation The patient was prepped in the usual manner. A laborer starch factory was present and in the room. Genitalia was prepped with betadine solution in a sterile manner. Lidocaine Jelly 2% was placed into the urethra and 16Fr flexible Olympus cystoscope was inserted into the meatus after adequate lubrication. Procedure Cystoscopy performed using a disposable Urovue digital 16 Greek cystoscope. Meatus uncircumcised Urethra anterior and posterior urethra normal Prostatic Urethra unremarkable Bladder examination with retroflexion of cystoscope Bladder Orifices normal shape and position Bladder Capacity medium Trabeculations - Cellule Formation - Diverticulum Formation - Mucosal Erythema - Bladder Tumor - [id number] DISPOSABLE SCOPE URO-G FLEXIBLE SCOPE Procedure code (CPT) selection complete Office Meds lidocaine HCl 2 % mucosal jelly in applicator Performing Provider: Suraj Mccarthy MD Performing Location: [facility] [place] [facility] Administered by: Kelly Baker RN on 11/17/24 15:33 Dose Route Admin Location Dispensed Lot Number Expiration Date [place] [employer] Chair 10 mL intra-urethral 10 mL nitrofurantoin monohydrate/macrocrystals 100 mg capsule Performing Provider: Suraj Mccarthy MD Performing Location: [facility] [place] [facility] Administered by: Kelly Baker RN on 11/17/24 15:33 Dose Route Admin Location Dispensed Lot Number Expiration Date [place] [employer] Chair 100 mg PO 1 cap Results AMB Urinalysis, Automated UA Leukoctes 0 Little/uL Last Edit by FUENTES Zee on 11/17/24 15:25 UA Nitrite Negative Last Edit by FUENTES Zee on 11/17/24 15:25 UA Urobilinogen 3.5 mg/dL Last Edit by FUENTES Zee on 11/17/24 15:25 UA Protein 0 mg/dL [facility] 11/17/[facility] 15:25 UA pH 6.0 Last Edit by Merrill German [facility] on 11/17/24 15:25 UA Blood 0 Pranav/uL Last Edit [facility] on 11/17/24 15:25 UA Specific [place] 0.010 Last Edit by Merrill German [facility] on 11/17/24 15:25 UA Ketone Negative Last Edit [facility] on 11/17/24 15:25 UA Bilirubin 0 mg/dL Last Edit [facility] on 11/17/24 15:25 UA Glucose 0 mg/dL Last Edit [facility] 11/17/24 15:25 Results Reviewed Results Reviewed: Laboratory Last Values Urine pH (Auto) 6.0 11/17/24 15:23 Specific [place] (Auto) 0.010 11/17/24 15:23 Urine Protein (Auto) 0 mg/dL 11/17/24 15:23 Glucose (UA)(Auto) 0 mg/dL 11/17/24 15:23 Urine Ketones (Auto) Negative 11/17/24 15:23 Urine Blood (Auto) 0 Pranav/uL 11/17/24 15:23 Urine Nitrite (Auto) Negative 11/17/24 15:23 Urine Bilirubin (Auto) 0 mg/dL 11/17/24 15:23 Urine Urobilinogen (Auto) 3.5 mg/dL 11/17/24 15:23 Leukocyte Esterase (Auto) 0 Little/uL 11/17/24 15:23 Assessment & Plan Assessment & Plan (1) Bladder cancer: Comment: January 2021 low-grade T1 medium with adjuvant gemcitabine Superficial recurrence 08/21 Code(s): C67.9 - Malignant neoplasm of bladder, unspecified Category: Medical Plan Six-month follow-up check cystoscopy Orders: Orders AMB Cystoscopy Today C67.9 - Malignant neoplasm of bladder, unspecified AMB Urinalysis Automated Today Z13.9 - Encounter for screening, unspecified Urine Cytology Today C67.9 - Malignant neoplasm of bladder, unspecified Patient Instructions: This note is constructed using voice recognition software. While every effort has been made to ensure accuracy school transportation director errors may have been included. Imaging studies, laboratory and physical exam results were discussed and reviewed in detail. No major barriers to patient understanding were identified. An opportunity to ask questions regarding the treatment plan was provided. All questions were answered. The patient expressed understanding and agreement with the above treatment plan. The patient is aware they should contact our office by phone for worsening of their current condition or the appearance of new urologic symptoms. Compliance is encouraged with any medications and followup testing that is ordered. It is a privilege to participate in the urologic care of your patient. If you have any questions or concerns regarding treatment for the above conditions, or other urologic issues, please do not hesitate to contact me. The office telephone contact is [phone]. Sincerely, Dr Suraj Mccarthy MD, [facility] - Urology Compassionate Specialist Care for the Genitourinary System Coding Level of Care Code Est Pt Level 3 (47731) Diagnoses Bladder cancer C67.9 CPT Codes Cystoscopy - CPT: [id number] ([id number])
== END 2024-11-17 15:57 | disposition home or self-care (01) ==
LOC: HO.HUSH 14:59
PROVIDERS: PCP Physician Assistant; Visit Provider Urology
DX: C67.8 Malignant neoplasm of overlapping sites of bladder (principal)
CPT/HCPCS: 52000; 99213

== ENCOUNTER 2025-02-13 07:23 | Emergency (ER) | payer OTHER, SELFPAY ==
--- NOTE | ~2025-02-13 | XR_ITS ---
EXAMINATION: XR CHEST CLINICAL INFORMATION: cp COMPARISON: None available. TECHNIQUE: 2 views of the chest were obtained. FINDINGS: No consolidation, pleural effusion or pneumothorax. Cardiomediastinal silhouette size is normal. Syndesmophyte formation and marginal osteophyte formation at the thoracolumbar junction. XR/XR chest 2V IMPRESSION: No acute airspace disease. Mild spondylosis. Electronically signed by: Keven Samano MD 02/13/2025 10:25 AM EDT
--- NOTE | 2025-02-13 07:27 | ECG_ITS ---
Test Reason : chest pain Blood Pressure : */* mmHG Vent. Rate : 58 BPM Atrial Rate : 58 BPM P-R Int : 166 ms QRS Dur : 74 ms QT Int : 426 ms P-R-T Axes : 53 6 3 degrees QTcB Int : 418 ms Sinus bradycardia Possible Inferior infarct (cited on or before 25-Feb-2022) Abnormal ECG When compared with ECG of 25-Feb-2022 20:45, No significant change was found Referred By: Generic ED Physician Electronically Signed By: Júnior Lott
[2025-02-13 07:34] VITALS: BP 137/83; PULSE 61; RESP 18; TEMP 36.5; O2SAT 97; BMI 33.6
[2025-02-13 07:48] VITALS: PULSE 57
--- NOTE | 2025-02-13 07:53 | PC.NURSE ---
Addendum entered by Luanen Horowitz RN 02/13/25 09:23: correction of previous note: Pt roomed in ED and changed. A&O X4 VSS NAD. CP mainly right side under ribs bit has been both sides in past Pt states nausea when it becomes worse. No SOB or other symptoms at this time. Original Note: Pt admitted changed and placed on full monitor, vss NAD states CP mainly right side under ribs bit has been both sides in past Pt states nausea w3hen it becomes worse. No SOB or other symptoms at this time.
--- OUTSIDE RECORDS SUMMARY | 2025-02-13 08:46 | XMS_ITS | Clinical Summary ---
Author Organization [employer] Address [address] [facility] [address] [place] [address] Care Team Providers Care Elevator Supervisor Name Role Phone Unavailable Primary Care Provider Unavailabl e Allergies No known active allergies Medications No known medications Encounters Date Type Department Care Team Description 01/03/2025 3:25 PM EDT Office Visit [facility] [address] [place] [address] Frederick Tripp DDS 01/03/2025 9:00 AM EDT Office Visit [facility] [address] [place] [address] Frederick Tripp DDS 12/22/2024 Telephone [facility] [address] [place] [address] Frederick Tripp DDS appt for dentures from Last 3 Months Social History Tobacco Use Types Packs/Day Years Used Date Smoking Tobacco: Never Smokeless Tobacco: Never Tobacco Cessation:Counseling Given: Not Answered Alcohol Use Standard Drinks/Week Comments Yes 0 (1 standard drink = 0.6 oz pur e alcohol) Sex and Gender Information Value Date Recorded Sex Assigned at Male 06/30/2022 10:35 AM EDT Legal Sex Male 10:35 AM EDT Gender Identity Male 06/30/2022 10:35 AM EDT Sexual Orientation Don't know 06/30/2022 10 :35 AM EDT Last Filed Vital Signs Vital Sign Reading Time Taken Comments Blood Pressure 132/88 01/29/2024 8:12 AM EDT Pulse - - Temperature - - Respiratory Rate - - Oxygen Saturation - - Inhaled Oxygen Concentration - - Weight - - Height - - Body Mass Index - - Plan of Treatment Health Maintenance Due Date Last Done Comments Dental Prophylaxis 1981 Dental X-Ray: Bitewings 1981 Depression Screening 1981 HIV Screening 1981 Lipid Panel 1981 SDOH Screening 1981 Disability Screening 1981 Alcohol/Substance Use Screening 1993 Family Planning (PISQ) 1996 Hepatitis C Screening 1999 Hepatitis B Vaccines (1 of 3 - 19+ 3-dose series) 2000 Dental Oral Exam 06/22/2021 12/20/2020 Dental X-Ray: Full Mouth 12/22/2023 12/20/2020 COVID-19 Vaccine (3 - 2023-2 5 season) 2024 01/19/2021, 12/22/2020 Tobacco Screening 01/28/2025 01/29/2024 Influenza Vaccine (Season Ended) 2025 DTaP/Tdap/Td Vaccines (2 - T d or Tdap) 08/25/2030 08/25/2020 Zoster Vaccines (1 of 2) 2031 RSV Patients and Patients Aged 60 years or older (1 - 1-dose 75+ series) 2056 HIB Vaccines Aged Out No longer eligi ble based on patient's age to complete this topic HPV Vaccines Aged Out No longer eligi ble based on patient's age to complete this topic Hepatitis A Vaccines Aged Out No long er eligible based on patient's age to complete this topic IPV Vaccines Aged Out No longer eligi ble based on patient's age to complete this topic Meningococcal B Vaccine Aged Out No l onger eligible based on patient's age to complete this topic Meningococcal Vaccine Aged Out No radha kyra eligible based on patient's age to complete this topic Pneumococcal Vaccine: Pediatrics (0 to 5 Years) and At-Risk Patients (6 to 49) Years Aged Out No longer eligible b ased on patient's age to complete this topic RSV under 20 months Aged Out No longe r eligible based on patient's age to complete this topic Rotavirus Vaccines Aged Out No longer eligible based on patient's age to complete this topic Procedures Procedure Name Priority Date/Time Associated Diagnosis Comments CASE PRESENTATION, DETAILED AND EXTENSIVE TREATMENT PLANNING Routine 01/03/2025 3:25 PM EDT REPAIR BROKEN COMPLETE DENTURE BASE, MAX Routine 01/03/2025 3:25 PM EDT LIMITED ORAL EVALUATION - PROBLEM FOCUSED Routine 01/03/2025 9:00 AM EDT PANORAMIC RADIOGRAPHIC IMAGE Routine 12/20/2020 12:00 AM EDT COMPREHENSIVE ORAL EVALUATION - NEW OR ESTABLISHED PATIENT Routine 12/20/2020 12:00 AM EDT from Last 3 Months or Most Recently Relevant to Health Maintenance Insurance DENTAL - [facility] PARTIAL (MEDICAID) [address] [place] [address] [address] [place] [address]
[2025-02-13] MEDS: Magnesium Hydrox/Alum Hydrox 30 ML ORAL.SUSP PO (09:41)
[2025-02-13] MEDS: Famotidine 20 MG TABLET PO (09:41)
--- NOTE | 2025-02-13 09:56 | ED_ITS ---
HPI - Chest Pain General Chief Complaint: Chest Pain Stated Complaint: chest pain Time Seen by Provider: 02/13/25 09:02 Source: patient, RN notes reviewed and old records reviewed Mode of arrival: ambulatory History of Present Illness ED Provider: Ama Magana PA-C HPI narrative: 44-year-old male with a past medical history of bladder CA presenting to the ED complaining of intermittent substernal chest pain radiating to throat x1.5 weeks. Admits to associated nausea and intermittent SOB. States pain has been waking him up from sleep. Pain was exacerbated with drinking a beer. Denies vomiting, cough, diarrhea/constipation, dysuria/hematuria Related Data Previous Rx's ?Medication ?Instructions ?Recorded acetaminophen 500 mg tablet 500 mg PO Q6H PRN fever or pain 05/19/23 (Tylenol Extra Strength) #14 tabs cyclobenzaprine 10 mg tablet 10 mg PO TID PRN muscle spasm #14 05/19/23 tabs ketorolac 10 mg tablet 10 mg PO TID PRN pain 5 days #15 05/19/23 tabs lidocaine 5 % topical patch 1 patch topical DAILY PRN pain #30 05/19/23 (Lidoderm) ea aluminum-mag hydroxide-simethicone 5 ml PO 5XD PRN dyspepsia #30 mL 02/13/25 200 mg-200 mg-20 mg/5 mL oral susp (Maalox Advanced) famotidine 20 mg tablet (Pepcid) 20 mg PO DAILY #14 tabs 02/13/25 Allergies Allergy/AdvReac Type Severity Reaction Status Date / Time No Known Allergies Allergy Verified 02/13/25 07:36 Review of Systems 2 Review of Systems: Yes all other systems are reviewed and are negative Constitutional: Constitutional: Reports as per [facility] Past Medical History Attestation statement: The following information was validated with the patient. Source: old records reviewed Medical History Bladder cancer Surgical History Hx of cystoscopy Social History Social History Alcohol intake: current Alcohol intake frequency: does not drink Alcohol type: beer and hard liquor Patient Tobacco Use Status: Former Tobacco user Tobacco use type: Cigarette Substance Use Type: Marijuana Physical Exam 2 Vital Signs: Vital Signs: Last Vital Signs Temp 97.9 F 02/13/25 11:57 Pulse 57 02/13/25 11:57 Resp 20 02/13/25 11:57 BP 143/85 H 02/13/25 11:57 Pulse Ox 95 02/13/25 11:57 O2 Del Method Room Air 02/13/25 11:57 BMI result Body Mass Index 33.6 Const: General: cooperative, healthy appearing and no acute distress O rientation/consciousness: patient oriented x3 Limitations: no limitations HEENT: Head: Yes normal to inspection and Yes atraumatic Ears: hearing grossly normal bilaterally General nose exam: Normal external nose present Face and sinus: Yes normal facial exam Eyes: General: appearance normal, both eyes and all related structures EOM: EOMs intact bilaterally Neck: Neck: Yes normal visual inspection and Yes no meningeal signs Chest: Chest palpation & inspection: normal inspection of the chest, no crepitus and tenderness sternum Resp: Effort & Inspection: normal respiratory effort and no respiratory distress Auscultation: clear to auscultation bilaterally, no crackles, no rales and no wheezes Cardio: Rate: regular rate Heart sounds: S1 normal heart sound present and S2 normal heart sound present GI: Inspection: Yes normal to inspection Palpation (GI): Soft to palpation, nontender, no guarding and not rigid : General: Yes no CVA tenderness Back/Spine/Pelvis: Back: no CVA tenderness Skin: Rashes: no rashes Wounds: no wounds Neuro: General: patient oriented x3, tone normal and no meningeal signs C ranial nerves: Yes CN's II-XII intact bilaterally Gait exam (Neuro): Normal gait present Extrem: General: Yes normal to inspection Course Course Course Narrative: -1141--no leukocytosis. Labs otherwise reassuring. Troponin negative XR chest 2V IMPRESSION: No acute airspace disease. Mild spondylosis. Results discussed with patient including worrisome signs and symptoms and strict return precautions, and when to return to the emergency department. They verbalized understanding and feel safe for discharge at this time. Medications Administered Discontinued Medications Generic Name Dose Route Start Last Admin Trade Name Freq PRN Reason Stop Dose Admin Al Hydroxide/Mg Hydroxide 30 ml 02/13/25 09:36 02/13/25 09:41 Magnesium Hydrox/Alum Hydrox 30 Ml Oral.Susp PO 02/13/25 09:37 30 ml ONCE ONE Administration Famotidine 20 mg 02/13/25 09:36 02/13/25 09:41 Famotidine 20 Mg Tablet PO 02/13/25 09:37 20 mg ONCE ONE Administration Medical Decision Making Medical Decision Making [facility] Narrative: 44-year-old male with a past medical history of bladder CA presenting to the ED complaining of intermittent substernal chest pain radiating to throat x1.5 weeks. Admits to associated nausea and intermittent SOB. On exam vital signs stable, NAD, nontoxic appearing, lungs CTA, chest pain mildly reproducible to palpation. Lungs CTA, abdomen is soft and nontender. Concern for GERD/gastritis vs ? Biliary colic. Lower suspicion for pancreatitis, atypical ACS, pneumonia/dissection or PE. Unlikely appendicitis/diverticulitis or PTX Plan: EKG, labs, CXR, GI cocktail Please refer to course for remaining clinical decision making, interpretation of labs/imaging results, and discussions with consultants and/or family members. Differential Diagnosis Differential Diagnoses: The differential diagnosis associated with the presentation includes As above Admission/Observation Consideration of admission/observation: Escalation of care including admission/observation considered Lab Data [facility] Lab Attestation statement: I reviewed the patient's lab results. 02/13/25 09:54 02/13/25 09:53 Labs: Lab Results 02/13/25 02/13/25 Range/Units 09:53 09:54 WBC 8.1 (4.8-10.8) X10*3/uL RBC 4.77 (4.60-5.80) X10*6/uL Hgb 13.9 L (14.0-18.0) g/dl Hct 40.5 L (42.0-52.0) % MCV 84.9 (80.0-98.0) fL MCH 29.1 (27.0-33.0) pg MCHC 34.3 (31.0-36.0) g/dl RDW 12.8 (11.0-16.0) % Plt Count 279 (160-400) X10*3/uL MPV 10.4 (9.4-12.4) fL Immature Gran % (Auto) 0.2 (0.0-0.4) % Neut % (Auto) 54.2 (45-73) % Lymph % (Auto) 25.9 (20-40) % Pender % (Auto) 6.8 (2-11) % Eos % (Auto) 11.4 H (0-4) % Baso % (Auto) 1.5 (0-2) % Lymph # (Auto) 2.1 (1.2-4.9) X10*3/uL Pender # (Auto) 0.6 (0.1-1.2) X10*3/uL Eos # (Auto) 0.9 H (0.0-0.4) X10*3/uL Baso # (Auto) 0.1 (0.0-0.2) X10*3/uL Abs Immat Gran (auto) 0.02 (0.00-0.03) X10*3/uL Absolute Neuts (auto) 4.4 (2.0-8.3) x10*3/uL Absolute Nucleated RBC 0.000 (0.0-0.012) X10*3/uL Nucleated RBC % (auto) 0.0 (0.0-0.2) /100WBC Sodium 140 (135-145) mmol/L Potassium 4.7 (3.3-5.1) mmol/L Chloride 110 H (96-108) mmol/L Carbon Dioxide 26 (22-29) mmol/L Anion Gap 9 L (12-20) BUN 12 (9-16) mg/dL Creatinine 0.83 (0.5-1.4) mg/dL Estim Creat Clear Calc 123.4 Estimated GFR > 60 Random Glucose 106 (60-115) mg/dL Calcium 9.1 (8.4-10.2) mg/dL Magnesium 1.8 (1.6-2.6) mg/dL Total Bilirubin 0.4 (0.0-1.0) mg/dL Direct Bilirubin 0.1 (0.0-0.5) mg/dL AST 29 (5-37) U/L ALT 33 (0-40) U/L Alkaline Phosphatase 88 (39-117) U/L Troponin I High Sens 4.1 (<3.5-35.0) ng/L Total Protein 7.0 (6.5-8.0) g/dL Albumin 4.2 (3.5-5.0) g/dL Lipase 18 (8-78) U/L Independent Interpretation I performed an independent interpretation of an: EKG (My interpretation EKG sinus bradycardia rate of 58. WI interval 166. QTC 418. No significant change when compared to prior. No STEMI) and Plain X-Ray Radiology Impression Discussion of test interpretation with radiology: I have reviewed the radiologist's reading. External Record Review External record reviewed: Inpatient record, Office record, Outpatient record, Prior outpatient labs, Prior outpatient radiology, Primary care record and Outside ED record Tests considered The following testing was considered but not selected: As above Prescription Management I considered prescription management with: Pain Medication Chronic Conditions Patient?s care impacted by: Other Social Determinants Patient?s care significantly limited by Social Determinants of Health including: Other Social Determinant of Health Discharge Plan Discharge Clinical Impression: Atypical chest pain Patient Disposition: Home, Self-Care Instructions: Noncardiac Chest Pain (ED) Additional Instructions: Your blood work and chest x-ray are reassuring Please have close follow up with your primary care doctor as well as Cardiology If her symptoms persist, worsen, pain becomes more constant, you have nausea/vomiting or fever return to the emergency department Maalox and Pepcid will help with acid reduction, take as needed You should also follow up with GI Prescriptions: New alum-mag hydroxide-simeth [Maalox Advanced] 200-200-20 mg/5 mL suspension 5 ml PO 5XD PRN (Reason: dyspepsia) Qty: 30 0RF Rx Instructions: administer between meals and at bedtime famotidine [Pepcid] 20 mg tablet 20 mg PO DAILY Qty: 14 0RF No Action cyclobenzaprine 10 mg tablet 10 mg PO TID PRN (Reason: muscle spasm) Qty: 14 0RF acetaminophen [Tylenol Extra Strength] 500 mg tablet 500 mg PO Q6H PRN (Reason: fever or pain) Qty: 14 0RF ketorolac 10 mg tablet 10 mg PO TID PRN (Reason: pain) 5 Days Qty: 15 0RF lidocaine [Lidoderm] 5 % adhesive patch,medicated 1 patch topical DAILY MDD remove after 12 hours PRN (Reason: pain) Qty: 30 0RF Rx Instructions: leave on most painful area for up to 12 hrs nitrofurantoin monohyd/m-cryst 100 mg capsule 100 mg PO ONCE Qty: 1 0RF lidocaine HCl 2 % jelly in applicator 10 ml intra-urethral ONCE Qty: 10 0RF Referrals: [facility] [Provider Group] - 1 week [facility] [Provider Group] - 1 week Tasha Abreu PA [Primary Care Provider] - 5 days Stand Alone Forms: Work/School Release Interventions: ED Discharge Assessment Last Done: 02/13/25 11:57 Discharge Date/Time: 02/13/25 12:27 Print Language: Omani
[2025-02-13 09:59] LABS: Basophils Absolute Auto 0.1 X10*3/uL (0.0-0.2); Basophils Percent Auto 1.5 % (0-2); Eosinophils Absolute Auto 0.9 X10*3/uL (0.0-0.4); Eosinophils Percent Auto 11.4 % (0-4); Hematocrit 40.5 % (42.0-52.0); Hemoglobin 13.9 g/dl (14.0-18.0); Imm Gran Abs Auto 0.02 X10*3/uL (0.00-0.03); Imm Gran Pct Auto 0.2 % (0.0-0.4); Lymphocytes Absolute Auto 2.1 X10*3/uL (1.2-4.9); Lymphocytes Percent Auto 25.9 % (20-40); MANUAL DIFF FLAG NO; Mean Corpuscular HGB Conc 34.3 g/dl (31.0-36.0); Mean Corpuscular Hemoglobin 29.1 pg (27.0-33.0); Mean Corpuscular Volume 84.9 fL (80.0-98.0); Mean Platelet Volume 10.4 fL (9.4-12.4); Monocytes Absolute Auto 0.6 X10*3/uL (0.1-1.2); Monocytes Percent Auto 6.8 % (2-11); Neutrophils Absolute Auto 4.4 x10*3/uL (2.0-8.3); Neutrophils Percent Auto 54.2 % (45-73); Platelet Count 279 X10*3/uL (160-400); Red Blood Count 4.77 X10*6/uL (4.60-5.80); Red Cell Distribution Width 12.8 % (11.0-16.0); White Blood Count 8.1 X10*3/uL (4.8-10.8)
[2025-02-13 10:18] LABS: Alanine Aminotransferase 33 U/L (0-40); Albumin Level 4.2 g/dL (3.5-5.0); Alkaline Phosphatase 88 U/L (39-117); Anion Gap 9 (12-20); Aspartate Amino Transferase 29 U/L (5-37); Bilirubin Direct 0.1 mg/dL (0.0-0.5); Bilirubin Total 0.4 mg/dL (0.0-1.0); Blood Urea Nitrogen 12 mg/dL (9-16); Calcium 9.1 mg/dL (8.4-10.2); Carbon Dioxide 26 mmol/L (22-29); Chloride 110 mmol/L (96-108); Creatinine Clr Calc Pharmacy 123.4; Estimated Glomerular Filt Rate > 60; Glucose Random 106 mg/dL (60-115); Lipase 18 U/L (8-78); Magnesium 1.8 mg/dL (1.6-2.6); Potassium 4.7 mmol/L (3.3-5.1); Sodium 140 mmol/L (135-145)
[2025-02-13 10:25] LABS: Troponin-I High Sensitivity 4.1 ng/L (<3.5-35.0)
--- NOTE | 2025-02-13 10:55 | PC.NURSE ---
Pt states slight improvement after meds but states I still feel like I have a rock there (pointing to epigastric area)
[2025-02-13 10:57] VITALS: BP 143/85; PULSE 57; RESP 20; TEMP 36.6; O2SAT 95
[2025-02-13 11:57] VITALS: BP 143/85; PULSE 57; RESP 20; TEMP 36.6; O2SAT 95
== END 2025-02-13 12:27 | disposition home or self-care (01) ==
PROVIDERS: Physician Assistant; Emergency Provider Emergency Medicine Emergency Medical Services; PCP Physician Assistant
DX: R07.89 Other chest pain (principal); R06.02 Shortness of breath; F12.90 Cannabis use, unspecified, uncomplicated; Z87.891 Personal history of nicotine dependence; Z85.51 Personal history of malignant neoplasm of bladder
CPT/HCPCS: 36415; 71046; 80048; 80076; 83690; 83735; 84484; 85025; 93005; 99283; 99284

== ENCOUNTER → 2025-02-13 07:27 | Outpatient (BNV) | payer OTHER, SELFPAY | PROVIDERS: Emergency Provider Emergency Medicine Emergency Medical Services; PCP Physician Assistant; Visit Provider Internal Medicine Cardiovascular Disease | DX: R00.1 Bradycardia, unspecified (principal) | CPT/HCPCS: 93010 ==

== ENCOUNTER → 2025-02-13 09:36 | Outpatient (BNV) | payer OTHER, SELFPAY | PROVIDERS: Emergency Provider Emergency Medicine Emergency Medical Services; PCP Physician Assistant; Visit Provider Radiology Diagnostic Radiology | DX: M47.815 Spondylosis without myelopathy or radiculopathy, thoracolumbar region (principal) | CPT/HCPCS: 71046 ==

== ENCOUNTER 2025-04-28 11:05 | Emergency (ER) | payer SELFPAY ==
--- NOTE | ~2025-04-28 | XR_ITS ---
EXAMINATION: XR FINGER, RIGHT CLINICAL INFORMATION: foreign body, fishing lure COMPARISON: None available. TECHNIQUE: On the right hand and right finger oblique and lateral view. FINDINGS: A physiologic volume projects over the distal end of the second digit. There is a 3 pronged EMBEDDED into the volar soft tissues at the level of the DIP joint. No bony involvement is seen. XR/XR finger RT min 2V IMPRESSION: Fishing hook embedded into the volar soft tissues of the distal right second digit of the hand. Electronically signed by: Major Cohen MD 04/28/2025 12:08 PM EDT
[2025-04-28 11:25] VITALS: BP 158/70; PULSE 63; RESP 16; TEMP 37; O2SAT 95; BMI 33.4
--- NOTE | 2025-04-28 11:26 | ED.GENADULT ---
HPI - General Adult General Chief complaint: Skin/Abscess/Foreign Body Stated complaint: hook on finger Time Seen by Provider: 04/28/25 11:38 Source: patient Mode of arrival: ambulatory Limitations: no limitations History of Present Illness ED Provider: HPI narrative: 44-year-old male with tetanus up-to-date presenting with fishhook in the right index finger, no other trauma. Related Data Previous Rx's ?Medication ?Instructions ?Recorded acetaminophen 500 mg tablet 500 mg PO Q6H PRN fever or pain 05/19/23 (Tylenol Extra Strength) #14 tabs cyclobenzaprine 10 mg tablet 10 mg PO TID PRN muscle spasm #14 05/19/23 tabs ketorolac 10 mg tablet 10 mg PO TID PRN pain 5 days #15 05/19/23 tabs lidocaine 5 % topical patch 1 patch topical DAILY PRN pain #30 05/19/23 (Lidoderm) ea aluminum-mag hydroxide-simethicone 5 ml PO 5XD PRN dyspepsia #30 mL 02/13/25 200 mg-200 mg-20 mg/5 mL oral susp (Maalox Advanced) famotidine 20 mg tablet (Pepcid) 20 mg PO DAILY #14 tabs 02/13/25 Allergies Allergy/AdvReac Type Severity Reaction Status Date / Time No Known Allergies Allergy Verified 04/28/25 11:27 Review of Systems Constitutional: Constitutional: Reports as per [facility] Past Medical History Medical History Bladder cancer Surgical History Hx of cystoscopy Social History Social History Alcohol intake: current Alcohol intake frequency: does not drink Alcohol type: beer and hard liquor Patient Tobacco Use Status: Former Tobacco user Tobacco use type: Cigarette Substance Use Type: Marijuana Physical Exam ED Vital Signs: Vital Signs - 24 hr 04/28/25 11:25 Temperature 98.6 F Pulse Rate 63 Respiratory Rate 16 Blood Pressure 158/70 H Pulse Oximetry 95 Oxygen Delivery Method Room Air BMI result Body Mass Index 33.4 Const Other: Submerged hook in the right index finger with FDS FDP intact radial ulnar pulses intact no sensory deficits on the bilateral sides of the finger, nail is intact Course Course Course Narrative: RME, this is a rapid medical exam performed by Ankit Overton please refer to primary provider for complete H&P- 44 year old male presents for evaluation of a foreign body (fish hook) in the right index finger. Plan for x-ray Procedures Foreign Body Removal Time Out Performed: yes Site: right and upper extremity Sedation/Analgesia: none Technique: manual removal Confirmed by:: direct visualization Complications: none Neurovascular: normal distal pulse and normal capillary fill Nerve Block Nerve Block 1: Time out performed: Yes Local Anesthetic: lidocaine 2% Amount of anesthesia used (mL): 6 Side: right Nerve Blocks: digital Procedure Successful: Yes Patient Tolerated Procedure: well Complications: none Medical Decision Making Medical Decision Making [facility] Narrative: FDS, FDP intact, no sensory deficits, no uncontrolled bleeding, tetanus up-to-date, x-ray without bony involvement, verbal consent for digital block, plan to perform digital block, then push the hook out fully cut it and remove it Differential Diagnosis Differential Diagnoses: The differential diagnosis associated with the presentation includes (See above) Independent Interpretation I performed an independent interpretation of an: Plain X-Ray (Fistula can soft tissue with the neville) Discharge Plan Discharge Clinical Impression: [place] injury to finger Patient Disposition: Home, Self-Care Additional Instructions: These typically do not get infected, if you have redness spreading to your upper extremity from the digit come back to the ER, take Motrin or Tylenol as needed for pain, digital block we will wear out in the next 1 hour so I gave you a work note in case you wanted to study a little more for test and fish hook in the finger is just a reason for few more days of prep work ; ) Prescriptions: No Action alum-mag hydroxide-simeth [Maalox Advanced] 200-200-20 mg/5 mL suspension 5 ml PO 5XD PRN (Reason: dyspepsia) Qty: 30 0RF Rx Instructions: administer between meals and at bedtime famotidine [Pepcid] 20 mg tablet 20 mg PO DAILY Qty: 14 0RF cyclobenzaprine 10 mg tablet 10 mg PO TID PRN (Reason: muscle spasm) Qty: 14 0RF acetaminophen [Tylenol Extra Strength] 500 mg tablet 500 mg PO Q6H PRN (Reason: fever or pain) Qty: 14 0RF ketorolac 10 mg tablet 10 mg PO TID PRN (Reason: pain) 5 Days Qty: 15 0RF lidocaine [Lidoderm] 5 % adhesive patch,medicated 1 patch topical DAILY MDD remove after 12 hours PRN (Reason: pain) Qty: 30 0RF Rx Instructions: leave on most painful area for up to 12 hrs nitrofurantoin monohyd/m-cryst 100 mg capsule 100 mg PO ONCE Qty: 1 0RF lidocaine HCl 2 % jelly in applicator 10 ml intra-urethral ONCE Qty: 10 0RF Stand Alone Forms: Work/School Release Print Language: Belizean
[2025-04-28 12:25] VITALS: BP 158/70; PULSE 63; RESP 16; TEMP 37; O2SAT 95
[2025-04-28] MEDS: Lidocaine HCl 2 % 20 ML VIAL 10 ML INFILTRATI (12:27)
--- OUTSIDE RECORDS SUMMARY | 2025-04-28 12:57 | XMS_ITS | Encounter Summary ---
Author Organization [employer] Address [address] [facility] [address] [place] [address] Care Team Providers Care Systems Software Developer Name Role Phone Unavailable Primary Care Provider Unavailabl e Reason for Visit * Reason Onset Date Comments New Patient 06/12/2023 Encounter Details Date Type Department Care Team (Late st Contact Info) Description 06/12/2023 Telephone [facility] [address] [place] [address] Adi Chan MD [address], [place] [phone] New Patient Social History Tobacco Use Types Packs/Day Years Used Date Smoking Tobacco: Never Assessed Sex and Gender Information Value Date Recorded Sex Assigned at Male 06/30/2022 10:35 AM EDT Legal Sex Male 10:35 AM EDT Gender Identity Male 06/30/2022 10:35 AM EDT Sexual Orientation Don't know 06/30/2022 10 :35 AM EDT documented as of this encounter Miscellaneous Notes * Telephone Encounter - Ely Amaya - 06/12/2023 1:59 PM EDT 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 EFFECTIVE SINCE 06/12/2023 documented in this encounter Plan of Treatment Not on file documented as of this encounter Visit Diagnoses Not on filedocumented in this encounter
--- OUTSIDE RECORDS SUMMARY | 2025-04-28 12:57 | XMS_ITS | Clinical Summary ---
Author Organization [employer] Address [address] [facility] [address] [place] [address] Care Team Providers Care Body Shop Supervisor Name Role Phone Unavailable Primary Care Provider Unavailabl e Allergies No known active allergies Medications No known medications Social History Tobacco Use Types Packs/Day Years [...] Use Screening 1993 Family Planning (PISQ) 1996 HPV Vaccines (1 - Male 3-dos e series) 1996 Hepatitis C Screening 1999 Hepatitis B Vaccines (1 of 3 - 19+ 3-dose series) 2000 Dental Oral Exam 06/22/2021 12/20/2020 Dental X-Ray: Full Mouth 12/22/2023 12/20/2020 COVID-19 Vaccine (3 - 2023-2 5 season) 2024 01/19/2021, 12/22/2020 Tobacco Screening 01/28/2025 01/29/2024 Influenza Vaccine (#1) 2025 DTaP/Tdap/Td Vaccines (2 - T d [...] Procedure Name Priority Date/Time Associated Diagnosis Comments PANORAMIC RADIOGRAPHIC IMAGE Routine 12/20/2020 12:00 AM EDT COMPREHENSIVE ORAL EVALUATION - NEW OR ESTABLISHED PATIENT Routine 12/20/2020 12:00 AM EDT from Last 3 Months or Most Recently Relevant to Health Maintenance Insurance [facility] [id number] DENTAL - [facility] PARTIAL (MEDICAID)
--- OUTSIDE RECORDS SUMMARY | 2025-04-28 12:57 | XMS_ITS | Encounter Summary ---
Author Organization [employer] Address [address] [facility] [address] [place] [address] Care Team Providers Care Regulatory Affairs Director Name Role Phone Unavailable Primary Care Provider Unavailabl e Reason for Visit * Reason Onset Date Comments appt for dentures 12/22/2024 Encounter Details Date Type Department Care Team (Late st Contact Info) Description 12/22/2024 Telephone [facility] [address] [place], [place] [phone] Frederick Tripp DDS [address], [place] [phone] appt for dentures Social History Tobacco Use Types Packs/Day Years Used Date Smoking Tobacco: Never Smokeless Tobacco: Never Alcohol Use Standard Drinks/Week Comments Yes 0 [...] encounter Miscellaneous Notes * Telephone Encounter - Lurdes Alex - 12/22/2024 12:40 PM EDT Patient has been seen in [facility] with Dr Tripp however he would liek to continue seeing Dr. Qasim ramirez to [facility]. He is having a problem with his detnures where his tooth has come loose and would like an appt to be seen on a Thursday morning . Please reach out to patient for scheduling DR Chang signed by Lurdes Alex at 12/22/2024 12:42 PM EDT documented in this encounter Plan of Treatment Not on file documented as of this encounter Visit Diagnoses Not on filedocumented in this encounter
== END 2025-04-28 12:27 | disposition home or self-care (01) ==
PROVIDERS: Emergency Provider Emergency Medicine; PCP Physician Assistant
DX: S60.450A Superficial foreign body of right index finger, initial encounter (principal); X58.XXXA Exposure to other specified factors, initial encounter; Y93.89 Activity, other specified; Y92.9 Unspecified place or not applicable; Y99.9 Unspecified external cause status
CPT/HCPCS: 10120; 73140; 99282; 99284; J2003

== ENCOUNTER → 2025-04-28 11:26 | Outpatient (BNV) | payer SELFPAY | PROVIDERS: Emergency Provider Emergency Medicine; PCP Physician Assistant; Visit Provider Radiology Diagnostic Radiology | DX: S60.551A Superficial foreign body of right hand, initial encounter (principal); W45.8XXA Other foreign body or object entering through skin, initial encounter | CPT/HCPCS: 73140 ==